=== PATIENT | female | born 1950 | race Caucasian/White ===

== ENCOUNTER 2017-02-02 19:57 | Inpatient (IN) | payer BC, MEDICARE ==
[~2017-02-02] VITALS: Ht 162.6 cm; Wt 71.0 kg
[~2017-02-02 19:57] MED LIST: ALBU8.5H5 INH; DILT180C9 PO; DOCU-131 PO; ESOM40CA PO; IPRA4AER INH; LASIX; LISI-167 PO; LORA0.5T PO; MONT10TA6 PO; POLY17PO5 PO; POTASSIUM CHLORIDE; TRAM50TA2 PO
[2017-02-02] MEDS ORDERED: ONDANSETRON 2MG/ML, 2ML ONE (20:40)
[2017-02-02] MEDS ORDERED: morphine SULFATE 10 MG/ML, 1ML ONE (20:40)
[2017-02-02] MEDS: MORPHINE SULFATE 4 MG/ML, 1ML IVPush PRN ×2 (20:44→22:43)
[2017-02-02] MEDS ORDERED: ONDANSETRON 2MG/ML, 2ML IVPush ONE (21:00)
[2017-02-02] MEDS ORDERED: SODIUM CHLORIDE 0.9% 1,000ML IVBOLUS ONE (21:00)
[2017-02-02] MEDS ORDERED: SODIUM CHLORIDE FLUSH 10ML SYR IVF ONE (21:00)
[2017-02-02] MEDS ORDERED: HYDROmorphone 1 MG/ML, 1ML IVPush PRN (22:30)
[2017-02-02] MEDS ORDERED: FLUN8.9H INH (23:58)
[2017-02-03] MEDS ORDERED: SODIUM CHLORIDE 0.9% 1,000ML IVBOLUS ONE
[2017-02-03] MEDS ORDERED: HYDROmorphone 1 MG/ML, 1ML ONE (00:03)
[2017-02-03 00:05] LABS: HEMATOCRIT 35.5 % (34.6-47.8); HEMOGLOBIN 12.1 g/dL (11.7-16.4); WHITE BLOOD COUNT 9.2 x10^3/uL (3.4-10)
[2017-02-03 00:15] LABS: BLOOD UREA NITROGEN 17 mg/dL (7-18)
[2017-02-03 00:19] LABS: ASPARTATE AMINO TRANSFERASE 24 U/L (15-37)
[2017-02-03] MEDS ORDERED: SODIUM CHLORIDE 0.9% 1,000 ML IV ONE (00:41)
[2017-02-03] MEDS ORDERED: ONDANSETRON 2MG/ML, 2ML IVPush PRN ×2 (01:00→02:00)
[2017-02-03 01:08] VITALS: BP 125/75
[2017-02-03] MEDS ORDERED: ALBUTEROL SULFATE 2.5 MG/3 ML NPPB PRN (02:00)
[2017-02-03] MEDS: HEPARIN 5,000 UNITS/ML, 1ML SQ SCH ×3 (02:47→22:02)
[2017-02-03] MEDS: SODIUM CHLORIDE 0.9% 1,000 ML IV SCH ×2 (02:47→14:50)
[2017-02-03] MEDS: morphine SULFATE 10 MG/ML, 1ML IVPush PRN ×4 (02:47→21:54)
[2017-02-03 03:59] VITALS: BP 154/73
[2017-02-03] MEDS: KETOROLAC 30 MG/1 ML IVPush PRN (07:34)
[2017-02-03] MEDS: PANTOPROZOLE 40MG TABLET PO SCH (07:39)
[2017-02-03] MEDS: MONTELUKAST 10 MG TABLET PO SCH (08:29)
[2017-02-03] MEDS: LACTULOSE 10 GM/15 ML UDC PO SCH ×2 (08:29→21:00)
[2017-02-03 08:34] VITALS: BP 128/70
[2017-02-03] MEDS: FLUNISOLIDE INH SCH (09:00)
[2017-02-03 10:25] LABS: PATH.CAST-FLAG NOT PRESENT; SPERM-FLAG NOT PRESENT; SRC-FLAG NOT PRESENT; XTAL-FLAG NOT PRESENT; YLC-FLAG NOT PRESENT
[2017-02-03] MEDS: HYDROcodone/APAP 10/325 MG TABLET PO PRN ×2 (12:34→19:48)
[2017-02-03] MEDS: TIZANIDINE 4MG TABLET PO SCH ×2 (13:09→21:55)
[2017-02-03 13:24] VITALS: BP 161/82
[2017-02-03] MEDS ORDERED: CEFTRIAXONE PMX 1GM/50ML 50 ML IV SCH (13:30)
[2017-02-03] MEDS ORDERED: CEFTRIAXONE 1,000 MG in DEXTROSE 5% 50 ML IV SCH ×2 (14:00)
[2017-02-03 20:37] VITALS: BP 175/93
[2017-02-03] MEDS ORDERED: LISINOPRIL 10 MG TABLET PO SCH (21:00)
[2017-02-03] MEDS ORDERED: DILTIAZEM 300 MG CAP.ER.24H PO SCH (21:00)
[2017-02-04 02:22] VITALS: BP 118/60
[2017-02-04] MEDS: KETOROLAC 30 MG/1 ML IVPush PRN (03:33)
[2017-02-04] MEDS: HYDROcodone/APAP 10/325 MG TABLET PO PRN ×5 (03:33→20:29)
[2017-02-04] MEDS: LORazepam 1MG TABLET PO PRN ×2 (03:33→23:58)
[2017-02-04] MEDS: SODIUM CHLORIDE 0.9% 1,000 ML IV SCH (04:21)
[2017-02-04] MEDS: PANTOPROZOLE 40MG TABLET PO SCH (07:30)
[2017-02-04] MEDS: MONTELUKAST 10 MG TABLET PO SCH (07:48)
[2017-02-04] MEDS: OMEPRAZOLE 20 MG CAPSULE.DR PO SCH (07:49)
[2017-02-04] MEDS: TIZANIDINE 2MG TABLET PO SCH ×2 (07:49→16:35)
[2017-02-04] MEDS: HEPARIN 5,000 UNITS/ML, 1ML SQ SCH ×2 (07:49→16:35)
[2017-02-04] MEDS: LACTULOSE 10 GM/15 ML UDC PO SCH ×2 (07:49→20:30)
[2017-02-04 08:00] VITALS: BP 120/62
[2017-02-04] MEDS: FLUNISOLIDE INH SCH (09:00)
[2017-02-04] MEDS ORDERED: CEFTRIAXONE 1,000 MG in SODIUM CHLORIDE 0.9% 50 ML IV SCH (10:11)
[2017-02-04 13:31] VITALS: BP 140/67
[2017-02-04] MEDS ORDERED: DOCUSATE 100 MG CAPSULE ONE (16:19)
[2017-02-04] MEDS: DOCUSATE 100 MG CAPSULE PO SCH (16:35)
[2017-02-04 20:17] VITALS: BP 156/81
[2017-02-04] MEDS: LISINOPRIL 10 MG TABLET PO SCH (20:29)
[2017-02-04] MEDS: DILTIAZEM 300 MG CAP.ER.24H PO SCH (20:30)
[2017-02-04] MEDS: morphine SULFATE 10 MG/ML, 1ML IVPush PRN (22:11)
[2017-02-05] MEDS: HYDROcodone/APAP 10/325 MG TABLET PO PRN ×5 (00:29→20:40)
[2017-02-05] MEDS: HEPARIN 5,000 UNITS/ML, 1ML SQ SCH ×3 (00:31→16:24)
[2017-02-05 02:19] VITALS: BP 136/60
[2017-02-05 07:40] VITALS: BP 136/68
[2017-02-05] MEDS: PANTOPROZOLE 40MG TABLET PO SCH (08:16)
[2017-02-05] MEDS: OMEPRAZOLE 20 MG CAPSULE.DR PO SCH (08:16)
[2017-02-05] MEDS: DOCUSATE 100 MG CAPSULE PO SCH ×2 (08:16→20:39)
[2017-02-05] MEDS: MONTELUKAST 10 MG TABLET PO SCH (08:16)
[2017-02-05] MEDS: TIZANIDINE 2MG TABLET PO SCH ×3 (08:17→16:23)
[2017-02-05] MEDS: LACTULOSE 10 GM/15 ML UDC PO SCH ×2 (08:17→20:40)
[2017-02-05] MEDS: FLUNISOLIDE INH SCH (08:17)
[2017-02-05] MEDS: ERTAPENEM 1 GM in SODIUM CHLORIDE 0.9% 50 ML IV SCH (12:53)
[2017-02-05 13:35] VITALS: BP 139/57
[2017-02-05] MEDS: morphine SULFATE 10 MG/ML, 1ML IVPush PRN (16:31)
[2017-02-05 18:58] VITALS: BP 101/42
[2017-02-05] MEDS: LISINOPRIL 10 MG TABLET PO SCH (20:39)
[2017-02-05] MEDS: DILTIAZEM 300 MG CAP.ER.24H PO SCH (20:39)
[2017-02-06] MEDS: HYDROcodone/APAP 10/325 MG TABLET PO PRN ×6 (00:25→20:52)
[2017-02-06] MEDS: LORazepam 1MG TABLET PO PRN (00:25)
[2017-02-06] MEDS: HEPARIN 5,000 UNITS/ML, 1ML SQ SCH ×4 (00:26→23:56)
[2017-02-06 01:18] VITALS: BP 104/54
[2017-02-06] MEDS: morphine SULFATE 10 MG/ML, 1ML IVPush PRN ×3 (06:46→22:06)
[2017-02-06 07:22] VITALS: BP 114/50
[2017-02-06] MEDS: OMEPRAZOLE 20 MG CAPSULE.DR PO SCH (07:30)
[2017-02-06] MEDS: PANTOPROZOLE 40MG TABLET PO SCH (07:41)
[2017-02-06] MEDS: MONTELUKAST 10 MG TABLET PO SCH (07:41)
[2017-02-06] MEDS: TIZANIDINE 2MG TABLET PO SCH ×4 (07:42→23:55)
[2017-02-06] MEDS: DOCUSATE 100 MG CAPSULE PO SCH ×2 (07:42→20:53)
[2017-02-06] MEDS: FLUNISOLIDE INH SCH (07:43)
[2017-02-06] MEDS: LACTULOSE 10 GM/15 ML UDC PO SCH ×2 (07:44→20:54)
[2017-02-06] MEDS: ERTAPENEM 1 GM in SODIUM CHLORIDE 0.9% 50 ML IV SCH (12:05)
[2017-02-06 13:24] VITALS: BP 123/55
[2017-02-06 19:16] VITALS: BP 116/48
[2017-02-06] MEDS: DILTIAZEM 300 MG CAP.ER.24H PO SCH (20:54)
[2017-02-06] MEDS: LISINOPRIL 10 MG TABLET PO SCH (20:54)
[2017-02-07] MEDS: LORazepam 1MG TABLET PO PRN (01:09)
[2017-02-07] MEDS: HYDROcodone/APAP 10/325 MG TABLET PO PRN ×6 (01:09→22:57)
[2017-02-07 01:21] VITALS: BP 146/61
[2017-02-07] MEDS: morphine SULFATE 10 MG/ML, 1ML IVPush PRN ×2 (04:50→09:03)
[2017-02-07] MEDS: OMEPRAZOLE 20 MG CAPSULE.DR PO SCH (07:30)
[2017-02-07 08:42] VITALS: BP 130/55
[2017-02-07] MEDS: MONTELUKAST 10 MG TABLET PO SCH (08:55)
[2017-02-07] MEDS: PANTOPROZOLE 40MG TABLET PO SCH (08:55)
[2017-02-07] MEDS: TIZANIDINE 2MG TABLET PO SCH ×2 (08:57→16:23)
[2017-02-07] MEDS: DOCUSATE 100 MG CAPSULE PO SCH ×2 (08:59→20:10)
[2017-02-07] MEDS: FLUNISOLIDE INH SCH (09:00)
[2017-02-07] MEDS: LACTULOSE 10 GM/15 ML UDC PO SCH ×2 (09:01→20:10)
[2017-02-07] MEDS: HEPARIN 5,000 UNITS/ML, 1ML SQ SCH ×2 (09:03→16:24)
[2017-02-07] MEDS: ERTAPENEM 1 GM in SODIUM CHLORIDE 0.9% 50 ML IV SCH (11:32)
[2017-02-07 14:52] VITALS: BP 127/57
[2017-02-07 19:00] VITALS: BP 121/48
[2017-02-07] MEDS ORDERED: ERGOCALCIFEROL 50,000 UNIT CAPSULE PO SCH (19:00)
[2017-02-07] MEDS ORDERED: MAGNESIUM HYDROXIDE 8%, 30ML UDC PO PRN (19:30)
[2017-02-07] MEDS: DILTIAZEM 300 MG CAP.ER.24H PO SCH (20:10)
[2017-02-07] MEDS: LISINOPRIL 10 MG TABLET PO SCH (20:10)
[2017-02-08] MEDS: LORazepam 1MG TABLET PO PRN (00:05)
[2017-02-08] MEDS: HEPARIN 5,000 UNITS/ML, 1ML SQ SCH ×3 (00:05→16:10)
[2017-02-08] MEDS: TIZANIDINE 2MG TABLET PO SCH ×3 (00:06→16:10)
[2017-02-08] MEDS: morphine SULFATE 10 MG/ML, 1ML IVPush PRN ×2 (01:35→18:04)
[2017-02-08 03:30] VITALS: BP 122/53
[2017-02-08] MEDS: HYDROcodone/APAP 10/325 MG TABLET PO PRN ×5 (03:58→20:59)
[2017-02-08] MEDS: OMEPRAZOLE 20 MG CAPSULE.DR PO SCH (07:30)
[2017-02-08] MEDS: PANTOPROZOLE 40MG TABLET PO SCH (07:52)
[2017-02-08] MEDS: LACTULOSE 10 GM/15 ML UDC PO SCH ×2 (07:53→20:59)
[2017-02-08] MEDS: MONTELUKAST 10 MG TABLET PO SCH (07:53)
[2017-02-08] MEDS: DOCUSATE 100 MG CAPSULE PO SCH ×2 (07:53→20:59)
[2017-02-08] MEDS: FLUNISOLIDE INH SCH (07:54)
[2017-02-08 08:32] VITALS: BP 107/47
[2017-02-08] MEDS: ERTAPENEM 1 GM in SODIUM CHLORIDE 0.9% 50 ML IV SCH ×2 (11:53→15:33)
[2017-02-08 13:14] VITALS: BP 100/51
[2017-02-08 18:59] VITALS: BP 104/54
[2017-02-08] MEDS: LISINOPRIL 10 MG TABLET PO SCH (20:58)
[2017-02-08] MEDS: DILTIAZEM 300 MG CAP.ER.24H PO SCH (21:48)
[2017-02-09] MEDS: LORazepam 1MG TABLET PO PRN (00:16)
[2017-02-09] MEDS: HEPARIN 5,000 UNITS/ML, 1ML SQ SCH ×3 (00:17→16:11)
[2017-02-09 01:14] VITALS: BP 154/68
[2017-02-09] MEDS: HYDROcodone/APAP 10/325 MG TABLET PO PRN ×6 (01:25→23:06)
[2017-02-09] MEDS: morphine SULFATE 10 MG/ML, 1ML IVPush PRN ×6 (01:56→21:23)
[2017-02-09] MEDS: OMEPRAZOLE 20 MG CAPSULE.DR PO SCH (07:30)
[2017-02-09] MEDS: MONTELUKAST 10 MG TABLET PO SCH (07:59)
[2017-02-09] MEDS: LACTULOSE 10 GM/15 ML UDC PO SCH ×2 (07:59→21:23)
[2017-02-09] MEDS: MULTIVITAMIN 1 TABLET PO SCH (07:59)
[2017-02-09] MEDS: TIZANIDINE 2MG TABLET PO SCH ×3 (07:59→16:11)
[2017-02-09] MEDS: FLUNISOLIDE INH SCH (07:59)
[2017-02-09] MEDS: DOCUSATE 100 MG CAPSULE PO SCH ×2 (07:59→21:22)
[2017-02-09] MEDS: PANTOPROZOLE 40MG TABLET PO SCH (08:00)
[2017-02-09 08:38] VITALS: BP 107/45
[2017-02-09 14:41] VITALS: BP 136/59
[2017-02-09] MEDS: ERTAPENEM 1 GM in SODIUM CHLORIDE 0.9% 50 ML IV SCH (16:11)
[2017-02-09 19:38] VITALS: BP 133/66
[2017-02-09] MEDS: LISINOPRIL 10 MG TABLET PO SCH (21:21)
[2017-02-09] MEDS: DILTIAZEM 300 MG CAP.ER.24H PO SCH (21:22)
[2017-02-10] MEDS: HEPARIN 5,000 UNITS/ML, 1ML SQ SCH ×3 (01:07→15:58)
[2017-02-10] MEDS: TIZANIDINE 2MG TABLET PO SCH ×3 (01:07→15:59)
[2017-02-10] MEDS: LORazepam 1MG TABLET PO PRN (01:07)
[2017-02-10 01:13] VITALS: BP 136/69
[2017-02-10] MEDS: morphine SULFATE 10 MG/ML, 1ML IVPush PRN ×2 (01:47→08:16)
[2017-02-10] MEDS: HYDROcodone/APAP 10/325 MG TABLET PO PRN ×5 (03:53→19:56)
[2017-02-10] MEDS: PANTOPROZOLE 40MG TABLET PO SCH (08:02)
[2017-02-10] MEDS: OMEPRAZOLE 20 MG CAPSULE.DR PO SCH (08:02)
[2017-02-10] MEDS: MULTIVITAMIN 1 TABLET PO SCH (08:02)
[2017-02-10] MEDS: MONTELUKAST 10 MG TABLET PO SCH (08:02)
[2017-02-10] MEDS: FLUNISOLIDE INH SCH (08:03)
[2017-02-10] MEDS: DOCUSATE 100 MG CAPSULE PO SCH ×2 (08:03→19:54)
[2017-02-10] MEDS: LACTULOSE 10 GM/15 ML UDC PO SCH ×2 (08:03→19:54)
[2017-02-10 08:18] VITALS: BP 152/73
[2017-02-10 13:37] VITALS: BP 129/59
[2017-02-10] MEDS: ERTAPENEM 1 GM in SODIUM CHLORIDE 0.9% 50 ML IV SCH (15:59)
[2017-02-10 19:34] VITALS: BP 102/61
[2017-02-10] MEDS: LISINOPRIL 10 MG TABLET PO SCH ×2 (19:56→19:57)
[2017-02-10] MEDS: DILTIAZEM 300 MG CAP.ER.24H PO SCH (19:56)
[2017-02-11] MEDS: HYDROcodone/APAP 10/325 MG TABLET PO PRN ×5 (00:07→15:24)
[2017-02-11] MEDS: LORazepam 1MG TABLET PO PRN (00:08)
[2017-02-11 04:05] VITALS: BP 135/66
[2017-02-11 07:40] VITALS: BP 129/62
[2017-02-11] MEDS: OMEPRAZOLE 20 MG CAPSULE.DR PO SCH (08:17)
[2017-02-11] MEDS: MULTIVITAMIN 1 TABLET PO SCH (08:17)
[2017-02-11] MEDS: PANTOPROZOLE 40MG TABLET PO SCH (08:17)
[2017-02-11] MEDS: HEPARIN 5,000 UNITS/ML, 1ML SQ SCH ×3 (08:18→15:24)
[2017-02-11] MEDS: MONTELUKAST 10 MG TABLET PO SCH (08:18)
[2017-02-11] MEDS: TIZANIDINE 2MG TABLET PO SCH ×3 (08:24→15:24)
[2017-02-11] MEDS: LACTULOSE 10 GM/15 ML UDC PO SCH (08:24)
[2017-02-11] MEDS: FLUNISOLIDE INH SCH (08:24)
[2017-02-11] MEDS: DOCUSATE 100 MG CAPSULE PO SCH (08:24)
[2017-02-11] MEDS ORDERED: HYDR-3307 PO (11:42)
[2017-02-11] MEDS ORDERED: HEPA5000 SQ (11:42)
[2017-02-11] MEDS ORDERED: TIZA2TAB PO (11:42)
[2017-02-11] MEDS ORDERED: ERGO500017 PO (11:46)
[2017-02-11] MEDS: ERTAPENEM 1 GM in SODIUM CHLORIDE 0.9% 50 ML IV SCH (14:13)
[2017-02-11 15:11] VITALS: BP 150/79
== END 2017-02-11 15:35 | DRG 552 ==
LOC: ED 22:28 → EDIP 02-03 00:41 → 4NOR 02-03 01:30
PROVIDERS: ADMIT Hospitalist; ATTEND Hospitalist
DX: S32.10XA Unspecified fracture of sacrum, initial encounter for closed fracture (principal); J44.9 Chronic obstructive pulmonary disease, unspecified; D64.9 Anemia, unspecified; N39.0 Urinary tract infection, site not specified; E55.9 Vitamin D deficiency, unspecified; F41.1 Generalized anxiety disorder; B96.20 Unspecified Escherichia coli [E. coli] as the cause of diseases classified elsewhere; K44.9 Diaphragmatic hernia without obstruction or gangrene; Z16.12 Extended spectrum beta lactamase (ESBL) resistance; W18.30XA Fall on same level, unspecified, initial encounter; K21.9 Gastro-esophageal reflux disease without esophagitis; I10 Essential (primary) hypertension; M19.90 Unspecified osteoarthritis, unspecified site; K59.00 Constipation, unspecified; Z75.1 Person awaiting admission to adequate facility elsewhere; Z87.440 Personal history of urinary (tract) infections; Z87.891 Personal history of nicotine dependence; Z87.11 Personal history of peptic ulcer disease; Y92.009 Unspecified place in unspecified non-institutional (private) residence as the place of occurrence of the external cause; Z79.899 Other long term (current) drug therapy; Z88.8 Allergy status to other drugs, medicaments and biological substances; Z79.1 Long term (current) use of non-steroidal anti-inflammatories (NSAID)
CPT/HCPCS: 36415; 71010; 72110; 72131; 72190; 72192; 80053; 81001; 82306; 82607; 84443; 85025; 87077; 87086; 87186; 87324; 96361; 96374; 96375; 96376; J0696; J1170; J1335; J1644; J1885; J2405; J2270; J7030

== ENCOUNTER 2018-09-17 22:19 | Inpatient (IN) | payer OTHER, MEDICARE ==
[~2018-09-17] VITALS: Ht 162.6 cm; Wt 78.4 kg
[~2018-09-17 22:19] MED LIST changes: +ERGO500017 PO; +FLUN8.9H INH; +HEPA50002 SQ; +HYDR-3307 PO; +TIZA2TAB PO
--- NOTE | 2018-09-17 22:28 | NUR ---
PT IN GOWN IN [facility]. ERP AT . PT EDUCATED ON ER PROCESS AND POC. PT MEDICATED WITH 100 MCG FENTANYL AND 1 MG OF VERSED EN ROUTE TO [facility] ED. PT PAIN UNRELIEVED BY THIS INTERVENTION. PT ATTACHED TO VS MACHINES AND PUBLIC ADMINISTRATION TEACHER. PT VSS. PT GIVEN CALL LIGHT; DENIES ANY OTHER NEEDS AT THIS TIME.
[2018-09-17] MEDS ORDERED: MORPHINE SULFATE 4 MG/ML, 1ML ONE ×2 (22:32→23:24)
[2018-09-17] MEDS: MORPHINE SULFATE 4 MG/ML, 1ML IVPush PRN ×2 (22:40→23:36)
--- NOTE | 2018-09-17 22:46 | NUR ---
PT HAS XRAY AT BS.
[2018-09-17] MEDS ORDERED: SODIUM CHLORIDE FLUSH 10ML SYR IVF ONE (23:00)
[2018-09-17 23:22] LABS: INTERNATIONAL NORMALIZED RATIO 0.91 (0.93-1.1); PROTHROMBIN TIME 9.6 Seconds (9.6-11.5)
[2018-09-17 23:23] LABS: ALBUMIN 3.7 g/dL (3.4-5.0); ANION GAP 10 mmol/L (5-15); CALCIUM 8.3 mg/dL (8.5-10.1); CHLORIDE 100 mmol/L (98-107); CREATININE 0.68 mg/dL (0.55-1.02)
[2018-09-17 23:28] LABS: MD YES
[2018-09-17 23:30] LABS: MEAN CORPUSCULAR HEMOGLOBIN 22.5 pg (27.0-34.8); MEAN CORPUSCULAR HGB CONC 30.7 g/dL (32.4-35.8); MEAN CORPUSCULAR VOLUME 73.4 fL (80-100); MEAN PLATELET VOLUME 7.9 fL (7.4-10.4); PLATELET COUNT 492 x10^3/uL (130-400); RED BLOOD COUNT 3.36 x10^6/uL (3.82-5.3); RED CELL DISTRIBUTION WIDTH 18.5 % (9.6-15.2)
--- NOTE | 2018-09-17 23:36 | NUR ---
PT MEDICATED PER MAY FOR PAIN. PT PROVIDED GLYCERIN SWABS FOR DRY MOUTH.
[2018-09-17 23:38] LABS: EOS% (MANUAL) 1 % (1-7); LYMPH#(MANUAL) 0.92 x10^3/uL (1-3.4); LYMPHS% (MANUAL) 9 % (22-44); MONOS% (MANUAL) 2 % (2-9); SEG#(MANUAL) 8.98 x10^3/uL (1.8-6.8); SEGS% (MANUAL) 88 % (42-75)
[2018-09-17 23:39] LABS: ANISOCYTOSIS 2+
[2018-09-17 23:40] LABS: HYPOCHROMIA 1+; MICROCYTOSIS 1+
[2018-09-17 23:41] LABS: OVALOCYTES 1+; TARGET CELLS 1+
[2018-09-17 23:42] LABS: <PLATELET ESTIMATE> INCREASED; <PLT MORPHOLOGY> NORMAL PLT MORPH
[2018-09-18] VITALS (11 sets, daily range): BP systolic 132–167; BP diastolic 69–82
--- NOTE | 2018-09-18 00:24 | NUR ---
ATTEMPTED REPORT OF PT TO LARRY IVERSON. PER ZAYRA BEY WILL CALL BACK.
[2018-09-18] MEDS ORDERED: MORPHINE SULFATE 4 MG/ML, 1ML IVPush PRN (00:30)
--- NOTE | 2018-09-18 00:59 | NUR ---
REPORT OF PT TO LARRY STEPHENSON. ALL QUESTIONS ANSWERED. PT TO RECEIVE PRBC UPON ARRIVAL TO FLOOR. SEEMA CONFIRMS AND VERBALIZES UNDERSTANDING.
[2018-09-18] MEDS ORDERED: MORPHINE SULFATE 4 MG/ML, 1ML IVPush ONE (03:30)
[2018-09-18] MEDS ORDERED: SODIUM CHLORIDE 0.9% 1,000 ML IV SCH (03:58)
[2018-09-18] MEDS ORDERED: LABETALOL 5MG/ML, 20ML IVPush PRN (04:00)
[2018-09-18] MEDS ORDERED: ACETAMINOPHEN 325 MG TABLET PO PRN (04:00)
[2018-09-18] MEDS ORDERED: POLYETHYLENE GLYCOL 17 GM PACKET PO PRN (04:00)
[2018-09-18] MEDS ORDERED: BISACODYL 10 MG SUPP PR PRN (04:00)
[2018-09-18] MEDS: LORazepam 0.5MG TABLET PO PRN ×2 (04:29→22:39)
[2018-09-18] MEDS ORDERED: ONDANSETRON 2MG/ML, 2ML IVPush ONE (04:30)
[2018-09-18] MEDS ORDERED: ALBUTEROL SULFATE 2.5 MG/3 ML NPPB PRN (05:30)
[2018-09-18 07:00] LABS: MEAN CORPUSCULAR HEMOGLOBIN 22.1 pg (27.0-34.8); MEAN CORPUSCULAR HGB CONC 30.4 g/dL (32.4-35.8); MEAN CORPUSCULAR VOLUME 72.8 fL (80-100); MEAN PLATELET VOLUME 7.6 fL (7.4-10.4); PLATELET COUNT 449 x10^3/uL (130-400); RED BLOOD COUNT 3.18 x10^6/uL (3.82-5.3); RED CELL DISTRIBUTION WIDTH 18.7 % (9.6-15.2)
[2018-09-18 07:44] LABS: BASOPHILS # (AUTO) 0.07 x10^3/uL (0-0.1); BASOPHILS % (AUTO) 1 % (0-1); EOSINOPHILS # (AUTO) 0.18 x10^3/uL (0-0.4); EOSINOPHILS % (AUTO) 2 % (1-7); LYMPHOCYTES # (AUTO) 1.22 x10^3/uL (1-3.4); LYMPHOCYTES % (AUTO) 15 % (22-44); MD NO; MONOCYTES # (AUTO) 0.83 x10^3/uL (0.2-0.8); MONOCYTES % (AUTO) 10 % (2-9); NEUTROPHILS # (AUTO) 5.95 x10^3/uL (1.8-6.8); NEUTROPHILS % (AUTO) 72 % (42-75)
[2018-09-18] MEDS ORDERED: ATOR10TA9 PO (08:58)
[2018-09-18] MEDS ORDERED: LISINOPRIL 10 MG TABLET PO SCH (09:00)
[2018-09-18] MEDS: SENNA/DOCUSATE TABLET PO SCH (09:00)
[2018-09-18] MEDS ORDERED: MORPHINE SULFATE 4 MG/ML, 1ML ONE ×2 (09:00→13:45)
[2018-09-18] MEDS: MONTELUKAST 10 MG TABLET PO SCH (09:02)
[2018-09-18] MEDS: morphine SULFATE 10 MG/ML, 1ML IVPush PRN ×3 (09:02→21:51)
[2018-09-18] MEDS: PANTOPROZOLE 40MG TABLET PO SCH (09:03)
[2018-09-18] MEDS ORDERED: FUROSEMIDE 20 MG/2 ML IV ONE (10:30)
[2018-09-18] MEDS: IPRATROPIUM 0.5 MG/2.5 ML INHA NPPB SCH ×3 (10:30→21:00)
[2018-09-18] MEDS: HEPARIN 5,000 UNITS/ML, 1ML SQ SCH ×2 (13:02→21:51)
[2018-09-18] MEDS: LISINOPRIL 10 MG TABLET PO SCH (22:39)
[2018-09-19 01:51] VITALS: BP 158/80
[2018-09-19] MEDS: IPRATROPIUM 0.5 MG/2.5 ML INHA NPPB SCH ×4 (03:00→20:43)
[2018-09-19 05:29] LABS: BASOPHILS # (AUTO) 0.08 x10^3/uL (0-0.1); BASOPHILS % (AUTO) 1 % (0-1); EOSINOPHILS # (AUTO) 0.61 x10^3/uL (0-0.4); EOSINOPHILS % (AUTO) 9 % (1-7); LYMPHOCYTES % (AUTO) 23 % (22-44); MD NO; MEAN CORPUSCULAR HEMOGLOBIN 24.6 pg (27.0-34.8); MEAN CORPUSCULAR HGB CONC 31.8 g/dL (32.4-35.8); MEAN CORPUSCULAR VOLUME 77.4 fL (80-100); MONOCYTES # (AUTO) 0.91 x10^3/uL (0.2-0.8); MONOCYTES % (AUTO) 14 % (2-9); NEUTROPHILS # (AUTO) 3.42 x10^3/uL (1.8-6.8); NEUTROPHILS % (AUTO) 53 % (42-75); PLATELET COUNT 381 x10^3/uL (130-400); RED BLOOD COUNT 4.07 x10^6/uL (3.82-5.3); RED CELL DISTRIBUTION WIDTH 19.4 % (9.6-15.2)
[2018-09-19 05:30] LABS: ANION GAP 5 mmol/L (5-15); CALCIUM 8.7 mg/dL (8.5-10.1); CHLORIDE 100 mmol/L (98-107); CREATININE 0.51 mg/dL (0.55-1.02)
[2018-09-19] MEDS: MONTELUKAST 10 MG TABLET PO SCH ×2 (07:07→07:52)
[2018-09-19] MEDS: HEPARIN 5,000 UNITS/ML, 1ML SQ SCH ×2 (07:26→23:58)
[2018-09-19 07:30] VITALS: BP 142/73
[2018-09-19] MEDS: PANTOPROZOLE 40MG TABLET PO SCH (07:52)
[2018-09-19] MEDS: morphine SULFATE 10 MG/ML, 1ML IVPush PRN ×4 (07:52→20:54)
[2018-09-19] MEDS: KETOROLAC 30 MG/1 ML IV PRN ×2 (08:00→15:52)
[2018-09-19] MEDS: SENNA/DOCUSATE TABLET PO SCH (08:39)
[2018-09-19] MEDS ORDERED: ALBUTEROL SULFATE 2.5 MG/3 ML HHN PRN (09:30)
[2018-09-19] MEDS: TIZANIDINE 4MG TABLET PO SCH ×2 (09:30→15:47)
[2018-09-19] MEDS: DILTIAZEM 300 MG CAP.ER.24H PO SCH (10:54)
[2018-09-19 12:10] VITALS: BP 119/67
[2018-09-19] MEDS ORDERED: BUPIVACAINE/EPI 0.5% 1:200K ONE (15:40)
[2018-09-19] MEDS ORDERED: MIDAZOLAM 1 MG/ML, 2ML ONE (16:46)
[2018-09-19] MEDS ORDERED: FENTANYL PF 250 MCG/5ML ONE (16:46)
[2018-09-19] MEDS ORDERED: CEFAZOLIN 1,000 MG ONE (17:11)
[2018-09-19] MEDS ORDERED: ROCURONIUM 10 MG/ML,10ML ONE (17:11)
[2018-09-19] MEDS ORDERED: SUGAMMADEX 200 MG/2 ML IVPush ONE (17:11)
[2018-09-19] MEDS ORDERED: ONDANSETRON 2MG/ML, 2ML ONE (17:11)
[2018-09-19] MEDS ORDERED: DEXAMETHASONE 4 MG/ML, 1ML ONE (17:11)
[2018-09-19] MEDS ORDERED: PROMETHAZINE 25 MG/ML, 1ML IV PRN (17:30)
[2018-09-19] MEDS ORDERED: DIPHENHYDRAMINE 50 MG/ML, 1ML IVPush PRN (17:30)
[2018-09-19] MEDS ORDERED: hydrALAzine 20 MG/ML, 1ML IV PRN (17:30)
[2018-09-19] MEDS ORDERED: ALBUTEROL/IPRATROPIUM 2.5MG/0.5MG, 3 ML NPPB PRN (17:30)
[2018-09-19] MEDS ORDERED: HYDROcodone/APAP 7.5-325MG/15ML UDC PO PRN (17:30)
[2018-09-19] MEDS ORDERED: MEPERIDINE/PF 25MG/0.5ML IVPush PRN (17:30)
[2018-09-19] MEDS ORDERED: FENTANYL PF 100 MCG/2ML ONE ×2 (17:57→18:22)
[2018-09-19] MEDS ORDERED: HYDROmorphone 2 MG/ML, 1ML ONE (17:57)
[2018-09-19] MEDS: FENTANYL PF 100 MCG/2ML IV PRN ×3 (18:00→18:28)
[2018-09-19] MEDS: HYDROmorphone 2 MG/ML, 1ML IVPush PRN ×4 (18:00→18:28)
[2018-09-19] MEDS ORDERED: LORazepam 2 MG/ML, 1ML ONE (18:01)
[2018-09-19] MEDS: LORazepam 2 MG/ML, 1ML IVPush PRN ×2 (18:07→18:17)
[2018-09-19] MEDS: BUDESONIDE 0.5 MG/2 ML INHA HHN SCH (20:43)
[2018-09-19] MEDS: LISINOPRIL 10 MG TABLET PO SCH (20:54)
[2018-09-20] VITALS (7 sets, daily range): BP systolic 88–128; BP diastolic 46–74
[2018-09-20] MEDS ORDERED: SODIUM CHLORIDE 0.9%, 500ML IVBOLUS ONE (00:30)
[2018-09-20] MEDS: DILTIAZEM 300 MG CAP.ER.24H PO SCH (00:41)
[2018-09-20] MEDS: TIZANIDINE 4MG TABLET PO SCH ×3 (00:57→17:25)
[2018-09-20] MEDS: CEFAZOLIN 2,000 MG in SODIUM CHLORIDE 0.9% 50 ML IV SCH ×3 (01:23→20:24)
[2018-09-20] MEDS: IPRATROPIUM 0.5 MG/2.5 ML INHA NPPB SCH ×4 (02:40→20:29)
[2018-09-20] MEDS: BUDESONIDE 0.5 MG/2 ML INHA HHN SCH ×2 (06:22→20:29)
[2018-09-20 07:39] LABS: BASOPHILS # (AUTO) 0.01 x10^3/uL (0-0.1); BASOPHILS % (AUTO) 0 % (0-1); EOSINOPHILS % (AUTO) 0 % (1-7); LYMPHOCYTES # (AUTO) 0.43 x10^3/uL (1-3.4); LYMPHOCYTES % (AUTO) 7 % (22-44); MD NO; MEAN CORPUSCULAR HEMOGLOBIN 24.3 pg (27.0-34.8); MEAN CORPUSCULAR HGB CONC 31.3 g/dL (32.4-35.8); MEAN CORPUSCULAR VOLUME 77.6 fL (80-100); MONOCYTES # (AUTO) 0.33 x10^3/uL (0.2-0.8); MONOCYTES % (AUTO) 6 % (2-9); NEUTROPHILS # (AUTO) 5.17 x10^3/uL (1.8-6.8); NEUTROPHILS % (AUTO) 87 % (42-75); PLATELET COUNT 370 x10^3/uL (130-400); RED BLOOD COUNT 3.77 x10^6/uL (3.82-5.3); RED CELL DISTRIBUTION WIDTH 20.4 % (9.6-15.2)
[2018-09-20 07:49] LABS: ANION GAP 8 mmol/L (5-15); CALCIUM 8.9 mg/dL (8.5-10.1); CHLORIDE 100 mmol/L (98-107); CREATININE 0.84 mg/dL (0.55-1.02)
[2018-09-20] MEDS: PANTOPROZOLE 40MG TABLET PO SCH (09:39)
[2018-09-20] MEDS: MONTELUKAST 10 MG TABLET PO SCH (09:39)
[2018-09-20] MEDS: SENNA/DOCUSATE TABLET PO SCH (09:40)
[2018-09-20 11:15] LABS: THYROID STIMULATING HORMONE 0.759 mIU/L (0.358-3.740)
[2018-09-20] MEDS: HEPARIN 5,000 UNITS/ML, 1ML SQ SCH (11:57)
[2018-09-20] MEDS: morphine SULFATE 10 MG/ML, 1ML IVPush PRN ×2 (11:57→20:25)
[2018-09-20] MEDS: LISINOPRIL 10 MG TABLET PO SCH (20:25)
[2018-09-20] MEDS: LORazepam 0.5MG TABLET PO PRN (23:27)
[2018-09-21 00:33] VITALS: BP 147/69
[2018-09-21] MEDS: HEPARIN 5,000 UNITS/ML, 1ML SQ SCH ×2 (00:38→12:24)
[2018-09-21] MEDS: TIZANIDINE 4MG TABLET PO SCH ×3 (00:38→16:21)
[2018-09-21] MEDS: IPRATROPIUM 0.5 MG/2.5 ML INHA NPPB SCH ×3 (02:59→15:16)
[2018-09-21 06:42] LABS: BASOPHILS % (AUTO) 0 % (0-1); EOSINOPHILS # (AUTO) 0.04 x10^3/uL (0-0.4); EOSINOPHILS % (AUTO) 0 % (1-7); LYMPHOCYTES # (AUTO) 1.22 x10^3/uL (1-3.4); LYMPHOCYTES % (AUTO) 14 % (22-44); MD NO; MEAN CORPUSCULAR HEMOGLOBIN 24.5 pg (27.0-34.8); MEAN CORPUSCULAR HGB CONC 31.2 g/dL (32.4-35.8); MEAN CORPUSCULAR VOLUME 78.5 fL (80-100); MEAN PLATELET VOLUME 7.8 fL (7.4-10.4); MONOCYTES # (AUTO) 1.14 x10^3/uL (0.2-0.8); MONOCYTES % (AUTO) 13 % (2-9); NEUTROPHILS # (AUTO) 6.66 x10^3/uL (1.8-6.8); NEUTROPHILS % (AUTO) 74 % (42-75); PLATELET COUNT 359 x10^3/uL (130-400); RED BLOOD COUNT 3.57 x10^6/uL (3.82-5.3); RED CELL DISTRIBUTION WIDTH 20.7 % (9.6-15.2)
[2018-09-21 06:52] LABS: ANION GAP 7 mmol/L (5-15); CALCIUM 8.7 mg/dL (8.5-10.1); CHLORIDE 102 mmol/L (98-107); CREATININE 0.68 mg/dL (0.55-1.02)
[2018-09-21 07:38] VITALS: BP 151/77
[2018-09-21] MEDS: BUDESONIDE 0.5 MG/2 ML INHA HHN SCH ×2 (08:36→21:00)
[2018-09-21] MEDS ORDERED: MORPHINE SULFATE 4 MG/ML, 1ML ONE (09:47)
[2018-09-21] MEDS: KETOROLAC 30 MG/1 ML IV PRN ×2 (09:51→16:26)
[2018-09-21] MEDS: morphine SULFATE 10 MG/ML, 1ML IVPush PRN (09:51)
[2018-09-21] MEDS: PANTOPROZOLE 40MG TABLET PO SCH (09:55)
[2018-09-21] MEDS: SENNA/DOCUSATE TABLET PO SCH (09:55)
[2018-09-21] MEDS: MONTELUKAST 10 MG TABLET PO SCH (09:55)
[2018-09-21] MEDS: LISINOPRIL 10 MG TABLET PO SCH ×2 (09:55→21:05)
[2018-09-21] MEDS: LORazepam 0.5MG TABLET PO PRN ×2 (12:24→18:29)
[2018-09-21 13:30] VITALS: BP 150/79
[2018-09-21] MEDS ORDERED: ALBUTEROL/IPRATROPIUM 2.5MG/0.5MG, 3 ML ONE (15:14)
[2018-09-21] MEDS: ALBUTEROL/IPRATROPIUM 2.5MG/0.5MG, 3 ML NPPB SCH ×2 (15:19→21:00)
[2018-09-21 19:49] VITALS: BP 155/72
[2018-09-22] MEDS: HEPARIN 5,000 UNITS/ML, 1ML SQ SCH ×2 (00:55→12:45)
[2018-09-22] MEDS: TIZANIDINE 4MG TABLET PO SCH ×3 (00:55→17:22)
[2018-09-22 00:57] VITALS: BP 158/77
[2018-09-22] MEDS: ALBUTEROL/IPRATROPIUM 2.5MG/0.5MG, 3 ML NPPB SCH ×4 (02:59→20:06)
[2018-09-22 06:35] LABS: ANION GAP 9 mmol/L (5-15); CALCIUM 8.8 mg/dL (8.5-10.1); CHLORIDE 105 mmol/L (98-107); CREATININE 0.53 mg/dL (0.55-1.02); MEAN CORPUSCULAR HEMOGLOBIN 24.6 pg (27.0-34.8); MEAN CORPUSCULAR HGB CONC 31.5 g/dL (32.4-35.8); MEAN CORPUSCULAR VOLUME 78.1 fL (80-100); PLATELET COUNT 344 x10^3/uL (130-400); RED BLOOD COUNT 3.63 x10^6/uL (3.82-5.3); RED CELL DISTRIBUTION WIDTH 21.2 % (9.6-15.2)
[2018-09-22 06:54] LABS: BASOPHILS # (AUTO) 0.07 x10^3/uL (0-0.1); BASOPHILS % (AUTO) 1 % (0-1); EOSINOPHILS # (AUTO) 0.28 x10^3/uL (0-0.4); EOSINOPHILS % (AUTO) 4 % (1-7); LYMPHOCYTES # (AUTO) 1.67 x10^3/uL (1-3.4); LYMPHOCYTES % (AUTO) 21 % (22-44); MD SCAN; MONOCYTES # (AUTO) 0.93 x10^3/uL (0.2-0.8); MONOCYTES % (AUTO) 12 % (2-9); NEUTROPHILS # (AUTO) 5.03 x10^3/uL (1.8-6.8); NEUTROPHILS % (AUTO) 63 % (42-75)
[2018-09-22 06:55] VITALS: BP 163/77
[2018-09-22] MEDS: BUDESONIDE 0.5 MG/2 ML INHA HHN SCH ×2 (07:10→20:06)
[2018-09-22] MEDS: LISINOPRIL 20 MG TABLET PO SCH ×2 (08:49→19:55)
[2018-09-22] MEDS: SENNA/DOCUSATE TABLET PO SCH (08:49)
[2018-09-22] MEDS: MONTELUKAST 10 MG TABLET PO SCH (08:49)
[2018-09-22] MEDS: PANTOPROZOLE 40MG TABLET PO SCH (08:49)
[2018-09-22] MEDS ORDERED: AMLODIPINE 2.5 MG TABLET PO SCH (09:00)
[2018-09-22 14:17] VITALS: BP 147/89
[2018-09-22 18:48] VITALS: BP 155/75
[2018-09-23] MEDS: HEPARIN 5,000 UNITS/ML, 1ML SQ SCH ×2 (00:13→13:57)
[2018-09-23 01:05] VITALS: BP 146/80
[2018-09-23] MEDS: TIZANIDINE 4MG TABLET PO SCH ×4 (01:30→21:29)
[2018-09-23] MEDS: ALBUTEROL/IPRATROPIUM 2.5MG/0.5MG, 3 ML NPPB SCH ×4 (02:14→20:11)
[2018-09-23 06:18] LABS: ANION GAP 5 mmol/L (5-15); CHLORIDE 104 mmol/L (98-107); CREATININE 0.52 mg/dL (0.55-1.02)
[2018-09-23 06:42] LABS: MEAN CORPUSCULAR HEMOGLOBIN 24.6 pg (27.0-34.8); MEAN CORPUSCULAR HGB CONC 31.3 g/dL (32.4-35.8); MEAN CORPUSCULAR VOLUME 78.6 fL (80-100); MEAN PLATELET VOLUME 8.3 fL (7.4-10.4); PLATELET COUNT 365 x10^3/uL (130-400); RED BLOOD COUNT 4.02 x10^6/uL (3.82-5.3); RED CELL DISTRIBUTION WIDTH 22.6 % (9.6-15.2)
[2018-09-23] MEDS: BUDESONIDE 0.5 MG/2 ML INHA HHN SCH ×2 (06:45→20:11)
[2018-09-23 07:12] VITALS: BP 147/81
[2018-09-23 07:39] LABS: BASOPHILS # (AUTO) 0.05 x10^3/uL (0-0.1); BASOPHILS % (AUTO) 1 % (0-1); EOSINOPHILS # (AUTO) 0.68 x10^3/uL (0-0.4); EOSINOPHILS % (AUTO) 9 % (1-7); LYMPHOCYTES # (AUTO) 1.63 x10^3/uL (1-3.4); LYMPHOCYTES % (AUTO) 22 % (22-44); MD MORPH REVIEW ONLY; MONOCYTES # (AUTO) 0.97 x10^3/uL (0.2-0.8); MONOCYTES % (AUTO) 13 % (2-9); NEUTROPHILS # (AUTO) 4.12 x10^3/uL (1.8-6.8); NEUTROPHILS % (AUTO) 55 % (42-75)
[2018-09-23 07:40] LABS: ANISOCYTOSIS 2+; HYPOCHROMIA 1+; MICROCYTOSIS 1+
[2018-09-23 07:41] LABS: <PLATELET ESTIMATE> ADEQUATE; <PLT MORPHOLOGY> NORMAL PLT MORPH; POLYCHROMASIA 1+
[2018-09-23] MEDS: PANTOPROZOLE 40MG TABLET PO SCH (08:08)
[2018-09-23] MEDS: SENNA/DOCUSATE TABLET PO SCH (08:08)
[2018-09-23] MEDS: LISINOPRIL 20 MG TABLET PO SCH (08:08)
[2018-09-23] MEDS: MONTELUKAST 10 MG TABLET PO SCH (08:09)
[2018-09-23 12:18] VITALS: BP 159/72
[2018-09-23] MEDS ORDERED: BISACODYL 10 MG SUPP PR PRN (13:00)
[2018-09-23 15:05] LABS: OCCULT BLOOD POSITIVE (NEGATIVE)
[2018-09-23 16:07] LABS: MEAN CORPUSCULAR HEMOGLOBIN 25.4 pg (27.0-34.8); MEAN CORPUSCULAR HGB CONC 31.9 g/dL (32.4-35.8); MEAN CORPUSCULAR VOLUME 79.7 fL (80-100); MEAN PLATELET VOLUME 8.2 fL (7.4-10.4); PLATELET COUNT 360 x10^3/uL (130-400); RED BLOOD COUNT 3.96 x10^6/uL (3.82-5.3); RED CELL DISTRIBUTION WIDTH 22.1 % (9.6-15.2)
[2018-09-23 16:08] LABS: MD YES
[2018-09-23 16:25] LABS: BASOS#(MANUAL) 0.07 x10^3/uL (0-0.1); BASOS% (MANUAL) 1 % (0-1); EOS#(MANUAL) 0.22 x10^3/uL (0.0-0.4); EOS% (MANUAL) 3 % (1-7); LYMPH#(MANUAL) 1.04 x10^3/uL (1-3.4); LYMPHS% (MANUAL) 14 % (22-44); MONOS#(MANUAL) 1.04 x10^3/uL (0.3-2.7); MONOS% (MANUAL) 14 % (2-9); REACTIVE LYMPHS # (MANUAL) 0.07 x10^3/uL (0-0); REACTIVE LYMPHS % (MANUAL) 1 % (0-0); SEG#(MANUAL) 4.96 x10^3/uL (1.8-6.8); SEGS% (MANUAL) 67 % (42-75)
[2018-09-23 16:26] LABS: <PLATELET ESTIMATE> ADEQUATE; ANISOCYTOSIS 1+; HYPOCHROMIA 1+; MICROCYTOSIS 1+
[2018-09-23 16:27] LABS: LARGE PLATELETS 1+
[2018-09-23 19:15] VITALS: BP 156/87
[2018-09-23] MEDS: DIPHENHYDRAMINE/ZINC CRM 2%, 30GM TP PRN (19:50)
[2018-09-23] MEDS ORDERED: AMLODIPINE 2.5 MG TABLET PO SCH (21:00)
[2018-09-24] MEDS: HEPARIN 5,000 UNITS/ML, 1ML SQ SCH ×2 (01:35→14:01)
[2018-09-24 01:40] VITALS: BP 156/91
[2018-09-24] MEDS: ALBUTEROL/IPRATROPIUM 2.5MG/0.5MG, 3 ML NPPB SCH ×2 (02:36→09:10)
[2018-09-24] MEDS: DIPHENHYDRAMINE/ZINC CRM 2%, 30GM TP PRN (05:09)
[2018-09-24 08:04] VITALS: BP 158/79
[2018-09-24] MEDS: MONTELUKAST 10 MG TABLET PO SCH (09:05)
[2018-09-24] MEDS: SENNA/DOCUSATE TABLET PO SCH (09:05)
[2018-09-24] MEDS: PANTOPROZOLE 40MG TABLET PO SCH (09:05)
[2018-09-24] MEDS: LISINOPRIL 20 MG TABLET PO SCH (09:05)
[2018-09-24] MEDS: TIZANIDINE 4MG TABLET PO SCH (09:06)
[2018-09-24] MEDS: BUDESONIDE 0.5 MG/2 ML INHA HHN SCH (09:10)
[2018-09-24] MEDS ORDERED: AMLO-150 PO (10:38)
[2018-09-24] MEDS ORDERED: LISI-170 PO (10:38)
[2018-09-24] MEDS ORDERED: TRAM50TA2 PO (15:17)
[2018-09-24] MEDS ORDERED: AMLODIPINE 5 MG TABLET PO SCH (21:00)
== END 2018-09-24 15:47 | DRG 493 ==
LOC: ED 22:42 → EDIP 09-18 00:17 → 4EST 09-18 01:15 → 5SO 09-20 01:16
PROVIDERS: ADMIT Family Medicine; ATTEND Family Medicine
PROC: 30233N1 Transfusion of Nonautologous Red Blood Cells into Peripheral Vein, Percutaneous Approach (ICD-10-PCS; 2018-09-18)
PROC: 0QSJXZZ Reposition Right Fibula, External Approach (ICD-10-PCS; 2018-09-18)
PROC: 0QSGXZZ Reposition Right Tibia, External Approach (ICD-10-PCS; 2018-09-18)
PROC: 0QSG04Z Reposition Right Tibia with Internal Fixation Device, Open Approach (ICD-10-PCS; principal; 2018-09-19 17:30)
DX: S82.451A Displaced comminuted fracture of shaft of right fibula, initial encounter for closed fracture (principal); E87.1 Hypo-osmolality and hyponatremia; D62 Acute posthemorrhagic anemia; G37.3 Acute transverse myelitis in demyelinating disease of central nervous system; D50.9 Iron deficiency anemia, unspecified; E66.3 Overweight; F17.210 Nicotine dependence, cigarettes, uncomplicated; G89.29 Other chronic pain; S82.391A Other fracture of lower end of right tibia, initial encounter for closed fracture; I10 Essential (primary) hypertension; I49.1 Atrial premature depolarization; J44.9 Chronic obstructive pulmonary disease, unspecified; K21.9 Gastro-esophageal reflux disease without esophagitis; F41.9 Anxiety disorder, unspecified; K59.00 Constipation, unspecified; T46.1X5A Adverse effect of calcium-channel blockers, initial encounter; M17.11 Unilateral primary osteoarthritis, right knee; W06.XXXA Fall from bed, initial encounter; Z68.29 Body mass index [BMI] 29.0-29.9, adult; Z79.899 Other long term (current) drug therapy; Z80.0 Family history of malignant neoplasm of digestive organs; Z87.11 Personal history of peptic ulcer disease; Z99.81 Dependence on supplemental oxygen; Z88.5 Allergy status to narcotic agent; Z88.8 Allergy status to other drugs, medicaments and biological substances; Z72.89 Other problems related to lifestyle; Y93.89 Activity, other specified; Y92.092 Bedroom in other non-institutional residence as the place of occurrence of the external cause; Y99.8 Other external cause status; Z79.51 Long term (current) use of inhaled steroids
CPT/HCPCS: 27825; 36415; 73590; 73610; 76000; 99285; J7620; J7626; J7644; 80048; 82040; 82272; 82330; 83735; 84100; 84443; 85025; 85610; 85730; 86850; 86900; 86923; 93005; 93306; 94640; 96374; 96376; C1713; G0378; J0690; J1100; J1170; J1644; J1885; J2250; J2405; J3010; J1940; J2060; J2270; J7030; J7040; P9016

== ENCOUNTER → 2019-04-10 | Outpatient (CLI) | payer OTHER, MEDICARE ==
[~2019-04-10] MED LIST changes: +AMLO-150 PO; +ATOR10TA9 PO; -HYDR-3307 PO; +HYDR-36 PO; +LISI-170 PO; -TIZA2TAB PO; +TIZA2TAB2 PO
== END | disposition home or self-care (01) ==
LOC: CFH 10:16
PROVIDERS: ATTEND Physician Assistant Surgical
DX: S82.391D Other fracture of lower end of right tibia, subsequent encounter for closed fracture with routine healing (principal); M19.071 Primary osteoarthritis, right ankle and foot; X58.XXXD Exposure to other specified factors, subsequent encounter

== ENCOUNTER 2019-05-01 10:24 | Day surgery (SDC) | payer OTHER, MEDICARE ==
[~2019-05-01] VITALS: Ht 162.6 cm; Wt 66.5 kg
[~2019-05-01 10:24] MED LIST changes: +DILT180C32 PO; -DILT180C9 PO
[2019-05-01] MEDS ORDERED: ROPIvacaine/PF 0.2%, 20 ML ONE ×2 (10:48)
[2019-05-01] MEDS ORDERED: ONDANSETRON 2MG/ML, 2ML ONE ×2 (10:48→13:43)
[2019-05-01] MEDS ORDERED: DEXAMETHASONE 4 MG/ML, 1ML ONE (10:48)
[2019-05-01] MEDS ORDERED: FENTANYL PF 250 MCG/5ML ONE ×2 (10:48)
[2019-05-01] MEDS ORDERED: PROPOFOL 10 MG/ML, 20ML ONE (10:48)
[2019-05-01] MEDS ORDERED: CEFAZOLIN 1,000 MG ONE (10:48)
[2019-05-01] MEDS ORDERED: ACETAMINOPHEN 500 MG TABLET PO STA (10:55)
[2019-05-01] MEDS ORDERED: GABAPENTIN 300 MG CAPSULE PO STA (10:55)
[2019-05-01] MEDS ORDERED: LACTATED RINGERS 1,000 ML IV SCH (10:55)
[2019-05-01] MEDS ORDERED: ACET-1600 PO (11:17)
[2019-05-01] MEDS ORDERED: LISI-170 PO (11:17)
[2019-05-01] MEDS ORDERED: NAPR1TAB25 PO (11:17)
[2019-05-01 11:18] VITALS: BP 127/77
[2019-05-01] MEDS ORDERED: PLEASE ENTER HEIGHT AND WEIGHT MC SCH (11:30)
[2019-05-01] MEDS ORDERED: EPINEPHRINE 1 MG/ML, 1ML ONE (11:45)
[2019-05-01] MEDS ORDERED: BUPIVACAINE/PF 0.5% ONE (11:45)
[2019-05-01] MEDS ORDERED: BUPIVACAINE/PF-EPI 0.25% 1:200K ONE (11:54)
[2019-05-01] MEDS ORDERED: LABETALOL 5MG/ML, 20ML IV PRN (12:00)
[2019-05-01] MEDS ORDERED: PROMETHAZINE 25 MG/ML, 1ML IV PRN (12:00)
[2019-05-01] MEDS ORDERED: MORPHINE SULFATE 4 MG/ML, 1ML IVPush PRN (12:00)
[2019-05-01] MEDS ORDERED: HYDROmorphone 2 MG/ML, 1ML IVPush PRN (12:00)
[2019-05-01] MEDS ORDERED: HALOPERIDOL 5 MG/ML IV PRN (12:00)
[2019-05-01] MEDS ORDERED: hydrALAzine 20 MG/ML, 1ML IV PRN (12:00)
[2019-05-01 12:12] LABS: ALANINE AMINOTRANSFERASE 21 U/L (12-78); ANION GAP 14 mmol/L (5-15); CHLORIDE 97 mmol/L (98-107); CREATININE 0.61 mg/dL (0.55-1.02)
[2019-05-01 12:14] LABS: ALKALINE PHOSPHATASE 100 U/L (45-117); BILIRUBIN,TOTAL 0.4 mg/dL (0.2-1.0); TOTAL PROTEIN 7.8 g/dL (6.4-8.2)
[2019-05-01] MEDS ORDERED: OXYcodone 5 MG/5 ML ORAL.SOL UDC ONE (13:20)
[2019-05-01] MEDS ORDERED: FENTANYL PF 100 MCG/2ML ONE (13:23)
[2019-05-01] MEDS ORDERED: HYDROcodone/APAP 7.5-325MG/15ML UDC ONE ×3 (13:23→14:05)
[2019-05-01] MEDS: FENTANYL PF 100 MCG/2ML IV PRN ×4 (13:25→13:40)
[2019-05-01] MEDS: HYDROcodone/APAP 7.5-325MG/15ML UDC PO PRN ×2 (13:26→14:05)
[2019-05-01] MEDS ORDERED: PROMETHAZINE 25 MG/ML, 1ML ONE (13:46)
== END 2019-05-01 15:45 | disposition home or self-care (01) ==
LOC: OUT 10:24
PROVIDERS: ATTEND Orthopaedic Surgery
DX: T85.79XA Infection and inflammatory reaction due to other internal prosthetic devices, implants and grafts, initial encounter (principal); J44.9 Chronic obstructive pulmonary disease, unspecified; I10 Essential (primary) hypertension; E78.5 Hyperlipidemia, unspecified; Z88.5 Allergy status to narcotic agent; Z88.8 Allergy status to other drugs, medicaments and biological substances; Y83.8 Other surgical procedures as the cause of abnormal reaction of the patient, or of later complication, without mention of misadventure at the time of the procedure; Y92.89 Other specified places as the place of occurrence of the external cause
CPT/HCPCS: 20680; 36415; 80053; 87070; 87075; 87077; 87147; 87186; 87205; J0171; J0690; J1100; J2405; J2550; J2704; J2795; J3010; J7120

== ENCOUNTER 2019-05-01 18:07 | Emergency (ER) | payer OTHER, MEDICARE ==
[~2019-05-01] VITALS: Ht 162.6 cm; Wt 70.0 kg
[~2019-05-01 18:07] MED LIST changes: +ACET-1600 PO; -DILT180C32 PO; +DILT180C9 PO; +NAPR1TAB25 PO
[2019-05-01 18:14] VITALS: BP 145/71
--- NOTE | 2019-05-01 18:19 | NUR ---
GABO MCKEON FROM HOME. PT HAD PLATE PLACED IN RIGHT ANKLE AFTER FRATURE, 09/17. PLATE REMOVED TODAY. AFTER PT ARRIVED HOME SHE NOTICED BLOOD SOAKING THROUGH THE SURGICAL WRAP. SURGICAL WRAP STILL IN PLACE. PT DENIES PAIN. PT CONNECTED TO MONITORING. CALL LIGHT IN REACH. AWAITING ORDERS AT THIS TIME.
--- NOTE | 2019-05-01 18:48 | NUR ---
REPORT FROM LARRY CHATTERJEE
[2019-05-01] MEDS ORDERED: HYDROcodone/APAP 5/325 TABLET ONE (19:30)
[2019-05-01] MEDS ORDERED: HYDROcodone/APAP 5/325 TABLET PO ONE (19:30)
== END 2019-05-01 19:49 | disposition home or self-care (01) ==
LOC: ED 19:43
DX: T81.89XA Other complications of procedures, not elsewhere classified, initial encounter (principal); J44.9 Chronic obstructive pulmonary disease, unspecified; K21.9 Gastro-esophageal reflux disease without esophagitis; I10 Essential (primary) hypertension; Z87.891 Personal history of nicotine dependence
CPT/HCPCS: 12004; 99283

== ENCOUNTER 2019-05-03 12:37 | Emergency (ER) | payer OTHER, MEDICARE ==
[~2019-05-03] VITALS: Ht 162.6 cm; Wt 70.0 kg
[2019-05-03 12:56] VITALS: BP 139/76
--- NOTE | 2019-05-03 13:24 | NUR ---
THIS IS A 69 YO FEMALE WHO PRESENTS TO THE ER CONCERNED ABOUT DICHARGE FROM RECENT SURGICAL SITE. PT HAS HAD RECENT SURGERY 05/01. SURGICAL SITE APPEARS TO BE HEALING WELL. MILD SWELLING NOTED WITH SEROSANGUINOUS WITH MINIMAL DISCHARGE. CALL LIGHT WITHIN REACH. WILL CONT TO MONITOR PT.
== END 2019-05-03 13:56 | disposition home or self-care (01) ==
LOC: ED 13:05
DX: Z48.01 Encounter for change or removal of surgical wound dressing (principal); I10 Essential (primary) hypertension; J44.9 Chronic obstructive pulmonary disease, unspecified; K21.9 Gastro-esophageal reflux disease without esophagitis; E87.1 Hypo-osmolality and hyponatremia
CPT/HCPCS: 99283

== ENCOUNTER 2019-07-05 22:37 | Inpatient (IN) | payer OTHER, MEDICARE ==
[~2019-07-05] VITALS: Ht 162.6 cm; Wt 70.8 kg
[~2019-07-05 22:37] MED LIST changes: +DILT180C32 PO; -DILT180C9 PO
[2019-07-05] MEDS ORDERED: ATROPINE SYRINGE 0.1 MG/ML, 10ML ONE (22:39)
--- NOTE | 2019-07-05 22:40 | NUR ---
BIB [facility] FOR CO PROGRESSIVE WEAKNESS X 24 HOURS. PRESENTS PWD; AWAKE/ALERT; A&OX2, LOCATION AND TIME, & WITH SLURRED SPEECH. BRADYCARDIC, HR 40'S & HYPOTENSIVE SBP 65 ON SCENE. +ORTHOSTATICS ON SCENE. GIVEN ATROPINE AND NS SHAREPOINT ADMINISTRATOR WITH IMPROVED HR AND BP. ARRIVES NSR 60 BP 71/39. HX OF HTN AND COPD. ADMITS DRINKING "TWO GOMEZ" THIS EVENING. SPEECH SLURRED, FACE SYMMETRICAL, +STRENGTH X 4. DENIES CP/SOB/PRODUCTIVE COUGH/FEVER/DIZZINESS/BLOOD IN EMESIS OR STOOL. BP/SPO2/ECG MONITORING IN PLACE. NSR ON MONITOR, RATE 55-60. HYPOTENSIVE, ONE LITER NS HUNG PER ERP VERBAL ORDER. <3S CAP REFILL. EKG COMPLETED UPON ARRIVAL. Addendum: 07/05/19 at 2300 by LWEGENER PT A&OX3, PERSON, LOCATION, & TIME
[2019-07-05] MEDS ORDERED: SODIUM CHLORIDE 0.9% 1,000ML IVBOLUS ONE (23:00)
[2019-07-05] MEDS ORDERED: AMLODIPINE (23:06)
[2019-07-05 23:11] LABS: BASOPHILS # (AUTO) 0.08 x10^3/uL (0-0.1); BASOPHILS % (AUTO) 2 % (0-1); EOSINOPHILS # (AUTO) 0.14 x10^3/uL (0-0.4); EOSINOPHILS % (AUTO) 3 % (1-7); LYMPHOCYTES # (AUTO) 1.16 x10^3/uL (1-3.4); LYMPHOCYTES % (AUTO) 24 % (22-44); MD NO; MEAN CORPUSCULAR HEMOGLOBIN 32.3 pg (27.0-34.8); MEAN CORPUSCULAR HGB CONC 34.2 g/dL (32.4-35.8); MEAN CORPUSCULAR VOLUME 94.5 fL (80-100); MEAN PLATELET VOLUME 8.1 fL (7.4-10.4); MONOCYTES # (AUTO) 0.43 x10^3/uL (0.2-0.8); MONOCYTES % (AUTO) 9 % (2-9); NEUTROPHILS # (AUTO) 3.13 x10^3/uL (1.8-6.8); NEUTROPHILS % (AUTO) 64 % (42-75); PLATELET COUNT 259 x10^3/uL (130-400); RED BLOOD COUNT 3.05 x10^6/uL (3.82-5.3)
--- NOTE | 2019-07-05 23:12 | NUR ---
PT EMOTIONAL, STATING "I'M 69 YEARS OLD. I CAN'T BE DRINKING LIKE THIS. EVERYTHING THAT IS GOING ON THE WORLD IS JUST SO SCARY RIGHT NOW". PT ABLE TO BE CALMED WITH VERBAL COACHING. IMPROVED BP W IVF. HR REMAINS SINUS, HR 56. PT DENIES DIZZINESS/WEAKNESS/NAUSEA. PWD.
[2019-07-05 23:19] LABS: ALANINE AMINOTRANSFERASE 40 U/L (12-78); ALBUMIN 3.1 g/dL (3.4-5.0); ANION GAP 12 mmol/L (5-15); CALCIUM 7.8 mg/dL (8.5-10.1); CHLORIDE 99 mmol/L (98-107); CREATININE 1.02 mg/dL (0.55-1.02)
[2019-07-05 23:24] LABS: ALKALINE PHOSPHATASE 87 U/L (45-117); BILIRUBIN,TOTAL 0.2 mg/dL (0.2-1.0); TOTAL PROTEIN 6.2 g/dL (6.4-8.2); TROPONIN I < 0.015 ng/mL (0.000-0.045)
[2019-07-05] MEDS ORDERED: MAGNESIUM SULFATE 1 GM, THIAMINE 100 MG, FOLIC ACID 1 MG, MVI ADULT 10 ML in SODIUM CHL... IV ONE (23:30)
--- NOTE | 2019-07-05 23:37 | NUR ---
BP BORDERLINE, ADDITIONAL IVF HUNG PER VERBAL ORDER. PT RESTING COMFORTABLY WITH EYES CLOSED, EVEN/REGULAR RESPIRATIONS NOTED. ERP AWARE OF LAB RESULTS, ADDITIONAL ORDERS RECEIVED. MEDICATIONS REQUESTED FROM PHARMACY. PT TO BE ADMITTED.
--- NOTE | 2019-07-05 23:48 | NUR ---
PT ARROUSES EASILY TO VOICE AND LIGHT PHYSICAL STIM. AWAKENS WITH "WHERE AM I? WHAT AM I DOING HERE?". PT EASILY RE-ORIENTED. REMAINS ORIENTED TO PERSON/TIME. IVF RUNNING.
[2019-07-06] MEDS ORDERED: SODIUM CHLORIDE 0.9%, 500ML IVBOLUS ONE
[2019-07-06 00:06] LABS: FREE T4 (FREE THYROXINE) 0.79 ng/dL (0.76-1.46)
--- NOTE | 2019-07-06 00:08 | NUR ---
REPORT TO LARRY WAKEFIELD ON TELE 2. PT PREPARED FOR TRANSPORT
[2019-07-06] MEDS ORDERED: ONDANSETRON ODT 4 MG PO PRN (01:00)
[2019-07-06] MEDS ORDERED: POLYETHYLENE GLYCOL 17 GM PACKET PO PRN (01:00)
[2019-07-06] MEDS ORDERED: MAGNESIUM SULFATE PMX 2GM/50ML 50 ML IV ONE (01:00)
[2019-07-06] MEDS ORDERED: BISACODYL 10 MG SUPP PR PRN (01:00)
[2019-07-06 01:01] VITALS: BP 142/74
[2019-07-06] MEDS: SODIUM CHLORIDE 0.9% 1,000 ML IV SCH ×2 (01:30→14:29)
[2019-07-06 05:31] LABS: BASOPHILS # (AUTO) 0.03 x10^3/uL (0-0.1); BASOPHILS % (AUTO) 1 % (0-1); EOSINOPHILS # (AUTO) 0.03 x10^3/uL (0-0.4); EOSINOPHILS % (AUTO) 1 % (1-7); LYMPHOCYTES # (AUTO) 1.26 x10^3/uL (1-3.4); LYMPHOCYTES % (AUTO) 28 % (22-44); MD NO; MEAN CORPUSCULAR HEMOGLOBIN 32.1 pg (27.0-34.8); MEAN CORPUSCULAR VOLUME 94.4 fL (80-100); MEAN PLATELET VOLUME 8.2 fL (7.4-10.4); MONOCYTES # (AUTO) 0.22 x10^3/uL (0.2-0.8); MONOCYTES % (AUTO) 5 % (2-9); NEUTROPHILS # (AUTO) 2.91 x10^3/uL (1.8-6.8); NEUTROPHILS % (AUTO) 66 % (42-75); PLATELET COUNT 273 x10^3/uL (130-400); RED BLOOD COUNT 3.34 x10^6/uL (3.82-5.3); RED CELL DISTRIBUTION WIDTH 15.8 % (9.6-15.2)
[2019-07-06 05:37] LABS: ANION GAP 11 mmol/L (5-15); CALCIUM 8.4 mg/dL (8.5-10.1); CHLORIDE 104 mmol/L (98-107)
[2019-07-06 05:44] LABS: CREATININE 0.65 mg/dL (0.55-1.02); TROPONIN I < 0.015 ng/mL (0.000-0.045)
[2019-07-06 07:56] VITALS: BP 125/72
[2019-07-06] MEDS: SENNA/DOCUSATE TABLET PO SCH (08:04)
[2019-07-06] MEDS: ACETAMINOPHEN 325 MG TABLET PO PRN ×2 (08:16→19:56)
[2019-07-06 09:11] VITALS: BP_SYST 132; BP_SYST 160; BP_SYST 172; BP_DIAS 82; BP_DIAS 86; BP_DIAS 98
[2019-07-06] MEDS ORDERED: OMEP20TA62 PO (09:26)
[2019-07-06] MEDS ORDERED: ALBU8.5H8 IH (11:10)
[2019-07-06] MEDS ORDERED: MONT10TA6 PO (11:11)
[2019-07-06 11:17] LABS: TROPONIN I < 0.015 ng/mL (0.000-0.045)
[2019-07-06] MEDS: POTASSIUM CHLORIDE 20 MEQ, MAGNESIUM SULFATE 1 GM, THIAMINE 200 MG, FOLIC ACID 1 MG, MV... IV SCH (14:28)
[2019-07-06 15:58] VITALS: BP_SYST 167; BP_SYST 176; BP_DIAS 84; BP_DIAS 86; BP_DIAS 89
[2019-07-06 18:46] VITALS: BP 181/92
[2019-07-06] MEDS ORDERED: ATORVASTATIN 10 MG TABLET PO SCH (21:00)
[2019-07-06] MEDS ORDERED: [UNRECOGNIZED DRUG - OTHER] NAS PRN (21:00)
[2019-07-06] MEDS ORDERED: DIPHENHYDRAMINE 25 MG CAPSULE ONE (23:21)
[2019-07-06] MEDS ORDERED: DIPHENHYDRAMINE 25 MG CAPSULE PO PRN (23:30)
[2019-07-07 01:31] VITALS: BP 175/90
[2019-07-07] MEDS: SODIUM CHLORIDE 0.9% 1,000 ML IV SCH (01:35)
[2019-07-07] MEDS: ACETAMINOPHEN 325 MG TABLET PO PRN ×2 (01:37→10:14)
[2019-07-07] MEDS ORDERED: SODIUM CHLORIDE NASAL SPRAY 45ML BOTTLE NAS PRN (05:00)
[2019-07-07 05:41] LABS: ANION GAP 10 mmol/L (5-15); CALCIUM 8.8 mg/dL (8.5-10.1); CHLORIDE 105 mmol/L (98-107); CREATININE 0.41 mg/dL (0.55-1.02)
[2019-07-07 06:09] VITALS: BP 188/95
[2019-07-07] MEDS: [UNRECOGNIZED DRUG - REMARK] PO SCH ×2 (08:20→09:00)
[2019-07-07] MEDS ORDERED: LISINOPRIL 20 MG TABLET PO SCH ×2 (08:30→21:00)
[2019-07-07] MEDS: SENNA/DOCUSATE TABLET PO SCH (09:00)
[2019-07-07 10:04] VITALS: BP 142/91
[2019-07-07 10:05] VITALS: BP 165/86
[2019-07-07 10:06] VITALS: BP 160/91
[2019-07-07 13:08] VITALS: BP 160/91
[2019-07-07] MEDS: POTASSIUM CHLORIDE 20 MEQ, MAGNESIUM SULFATE 1 GM, THIAMINE 200 MG, FOLIC ACID 1 MG, MV... IV SCH (14:00)
== END 2019-07-07 15:01 | disposition home or self-care (01) | DRG 74 ==
LOC: ED 22:45 → EDIP 07-06 → 4WST 07-06 00:22
PROVIDERS: ADMIT Internal Medicine; ATTEND Internal Medicine
DX: G90.8 Other disorders of autonomic nervous system (principal); E87.1 Hypo-osmolality and hyponatremia; I47.1 Supraventricular tachycardia; J44.9 Chronic obstructive pulmonary disease, unspecified; F41.1 Generalized anxiety disorder; K21.9 Gastro-esophageal reflux disease without esophagitis; D64.9 Anemia, unspecified; E83.42 Hypomagnesemia; K44.9 Diaphragmatic hernia without obstruction or gangrene; R00.1 Bradycardia, unspecified; I10 Essential (primary) hypertension; E78.5 Hyperlipidemia, unspecified; Z87.11 Personal history of peptic ulcer disease; Z88.5 Allergy status to narcotic agent; Z87.891 Personal history of nicotine dependence; Z88.8 Allergy status to other drugs, medicaments and biological substances
CPT/HCPCS: 36415; 71045; 80048; 80053; 80307; 83735; 84439; 84443; 84484; 85025; 93005; 93306; 99285; G0378; J3411; J3475; J3480; J7030; J7040; Q0163

== ENCOUNTER 2019-08-01 11:25 | Inpatient (IN) | payer OTHER, MEDICARE ==
[~2019-08-01] VITALS: Ht 162.6 cm; Wt 63.0 kg
[~2019-08-01 11:25] MED LIST changes: +ALBU8.5H8 IH; +AMLODIPINE; +OMEP20TA62 PO
--- NOTE | 2019-08-01 11:50 | NUR ---
BIB BY [facility] FOR NAUSEA/SOB/CP/GENERALIZED MALAISE X 3 DAYS. ON ARRIVAL EMS REPORTS HR 160-170'S AND VERY IRREGULAR (EMS ECG AT BEDSIDE). PIV PLACED AND GIVEN 150MG OF AMIODARONE AND ROUGHLY 200ML OF NS WITH IMMEDIATE IMPROVEMENT IN HR TO 60-70'S. ON ARRIVAL: A+OX4, HR 70, 86/53. REPORTS CHEST PAIN/SOB REMAIN AT 8/10 (SAME PRIOR TO EMS ARRIVAL) PLACED ON WATCHMAKER APPRENTICE ECG OBTAININED 1L NS INFUSING AT RAPID RATE/2ND PIV TO BE PLACED SHORTLY BY MEDIC +COUGH/MAILAISE- IN MASK, PLACED IN NEGATIVE PRESSURE ROOM
--- NOTE | 2019-08-01 11:55 | NUR ---
LAB AT BEDSIDE PROVIDER OBTAINED COVID SAMPLE CLARIFIED NEED FOR AMIODARONE DRIP (RYTHM REMAIN SINUS), NEED FOR BLOOD CULTURES AND SAFETY OF ASPIRIN FOR CHEST PAIN IN SETTING OF PROBABLE COVID. PROVIDER CONSIREING PLAN
[2019-08-01] MEDS ORDERED: ASPIRIN 81 MG TABLET CHEW ONE ×2 (12:00→13:22)
[2019-08-01] MEDS ORDERED: PLEASE ENTER ALLERGIES MC SCH (12:00)
[2019-08-01] MEDS ORDERED: ASPIRIN 81 MG TABLET CHEW PO ONE ×2 (12:00→13:00)
--- NOTE | 2019-08-01 12:06 | NUR ---
MEDICATED OPER EMAR WITH 162 OF [facility] (AFTER DISCUSSION WITH PROVIDER) CXR AT BEDSIDE LAB AT BEDSIDE-FULL SET OF LABS OBTAINED INCLUDING BLOOD CULTURES
[2019-08-01 12:19] LABS: BASOPHILS # (AUTO) 0.01 x10^3/uL (0-0.1); BASOPHILS % (AUTO) 0 % (0-1); EOSINOPHILS # (AUTO) 0.11 x10^3/uL (0-0.4); EOSINOPHILS % (AUTO) 1 % (1-7); LYMPHOCYTES # (AUTO) 1.43 x10^3/uL (1-3.4); LYMPHOCYTES % (AUTO) 17 % (22-44); MD NO; MEAN CORPUSCULAR HEMOGLOBIN 33.6 pg (27.0-34.8); MEAN CORPUSCULAR HGB CONC 33.4 g/dL (32.4-35.8); MEAN CORPUSCULAR VOLUME 100.5 fL (80-100); MEAN PLATELET VOLUME 8.7 fL (7.4-10.4); MONOCYTES % (AUTO) 5 % (2-9); NEUTROPHILS # (AUTO) 6.44 x10^3/uL (1.8-6.8); NEUTROPHILS % (AUTO) 77 % (42-75); PLATELET COUNT 179 x10^3/uL (130-400); RED BLOOD COUNT 3.17 x10^6/uL (3.82-5.3); RED CELL DISTRIBUTION WIDTH 16.9 % (9.6-15.2)
[2019-08-01 12:27] LABS: ALANINE AMINOTRANSFERASE 51 U/L (12-78); ALBUMIN 3.3 g/dL (3.4-5.0); ANION GAP 17 mmol/L (5-15); CALCIUM 8.3 mg/dL (8.5-10.1); CHLORIDE 104 mmol/L (98-107)
[2019-08-01 12:31] LABS: ALKALINE PHOSPHATASE 116 U/L (45-117); BILIRUBIN,TOTAL 1.3 mg/dL (0.2-1.0); TOTAL PROTEIN 6.5 g/dL (6.4-8.2)
[2019-08-01 12:33] LABS: TROPONIN I 0.185 ng/mL (0.000-0.045)
--- NOTE | 2019-08-01 12:35 | NUR ---
Received call from lab for critical Troponin of 0.185. Provider made aware No new orders at this time
--- NOTE | 2019-08-01 13:07 | NUR ---
Provider to bedside-poc reviewed, to admin an additional 162mg of asa/avoid heparin gtt & placed card tele admit order
[2019-08-01] MEDS ORDERED: morphine SULFATE 10 MG/ML, 1ML IVPush PRN (13:30)
[2019-08-01] MEDS ORDERED: NITROGLYCERIN 0.4 MG BOTTLE (25 TABS) SL PRN (13:30)
[2019-08-01] MEDS ORDERED: GABAPENTIN 300 MG CAPSULE PO PRN (13:30)
[2019-08-01] MEDS ORDERED: NITROGLYCERIN 0.4 MG/SPRAY SL PRN (13:30)
[2019-08-01] MEDS ORDERED: morphine SULFATE 10 MG/ML, 1ML IV PRN (13:30)
[2019-08-01] MEDS ORDERED: MAGNESIUM SULFATE PMX 2GM/50ML 50 ML IV ONE (14:00)
[2019-08-01] MEDS ORDERED: TEMPLATE NON-FORMULARY MED. (Albuterol Sulfate** (Albuterol Sulfate Hfa**) 2 PUFF(S)) INH PRN (14:00)
[2019-08-01] MEDS ORDERED: ALBUTEROL SULFATE 2.5 MG/3 ML NPPB PRN (14:00)
[2019-08-01] MEDS ORDERED: LORazepam 0.5MG TABLET PO PRN (14:00)
--- NOTE | 2019-08-01 14:28 | NUR ---
UP TO BEDSIDE COMMODE 2 PERSON ASSIST D/T BILATERAL LOWER EXTREMITY WEAKNESS VOIDED AND HAD FORMED BM
[2019-08-01 14:54] VITALS: BP 113/74
[2019-08-01] MEDS ORDERED: CHOL50002 PO (16:49)
[2019-08-01] MEDS ORDERED: AMLO-150 PO (16:49)
[2019-08-01] MEDS ORDERED: LORA-446 PO (16:49)
[2019-08-01 19:26] LABS: TROPONIN I 0.937 ng/mL (0.000-0.045)
[2019-08-01 20:03] VITALS: BP 152/94
[2019-08-01] MEDS: ATORVASTATIN 10 MG TABLET PO SCH (20:12)
[2019-08-01] MEDS: SODIUM CHLORIDE FLUSH 10ML SYR IVF SCH (20:12)
[2019-08-01 20:51] LABS: CLOSTRIDIUM DIFFICILE ANTIGEN NEGATIVE; CLOSTRIDIUM DIFFICILE TOXIN NEGATIVE (Negative)
[2019-08-01] MEDS ORDERED: LISINOPRIL 20 MG TABLET PO SCH (21:00)
[2019-08-01] MEDS: LORazepam 0.5MG TABLET PO PRN (23:31)
[2019-08-02 01:43] VITALS: BP 141/83
[2019-08-02] MEDS: ACETAMINOPHEN 325 MG TABLET PO PRN (03:40)
[2019-08-02 05:28] LABS: ANION GAP 9 mmol/L (5-15); CALCIUM 8.4 mg/dL (8.5-10.1); CHLORIDE 104 mmol/L (98-107)
[2019-08-02 05:58] LABS: CHOL/HDL RATIO 1.7; CHOLESTEROL, TOTAL 131 mg/dL (140-239); CREATININE 0.57 mg/dL (0.55-1.02); HDL CHOL % 59 % (28-40); HDL CHOLESTEROL (DIRECT) 77 mg/dL (40-60); LDL CHOLESTEROL,CALCULATED 36 mg/dL (54-169); LDL/HDL RATIO 0.5 (0.5-3.0); TRIGLYCERIDES 91 mg/dL (50-200); VLDL CHOLESTEROL 18 mg/dL (0-25)
[2019-08-02] MEDS: ASPIRIN 325 MG TABLET EC PO SCH (05:59)
[2019-08-02 07:40] VITALS: BP 161/62
[2019-08-02] MEDS: OMEPRAZOLE 20 MG CAPSULE.DR PO SCH (08:21)
[2019-08-02] MEDS: SODIUM CHLORIDE FLUSH 10ML SYR IVF SCH ×2 (08:21→19:54)
[2019-08-02] MEDS: MONTELUKAST 10 MG TABLET PO SCH (08:21)
[2019-08-02] MEDS ORDERED: METOPROLOL TARTRATE 25 MG TAB PO SCH ×3 (09:30→18:00)
[2019-08-02] MEDS: LISINOPRIL 10 MG TABLET PO SCH ×2 (09:45→19:37)
[2019-08-02] MEDS: POTASSIUM CHLORIDE 20 MEQ TAB.ER.PRT PO SCH ×2 (09:45→12:04)
[2019-08-02 12:29] LABS: TROPONIN I 0.294 ng/mL (0.000-0.045)
[2019-08-02] MEDS ORDERED: DILTIAZEM 5 MG/ML, 5ML IVPush ONE (12:30)
[2019-08-02 13:34] VITALS: BP 112/76
[2019-08-02] MEDS: LOPERAMIDE 2 MG CAPSULE PO PRN ×2 (15:41→23:24)
[2019-08-02 19:19] VITALS: BP 128/72
[2019-08-02] MEDS: METOPROLOL TARTRATE 25 MG TAB PO SCH (19:54)
[2019-08-02] MEDS: ATORVASTATIN 10 MG TABLET PO SCH (19:54)
[2019-08-02] MEDS: LORazepam 0.5MG TABLET PO PRN (23:24)
[2019-08-03] VITALS (8 sets, daily range): BP systolic 107–164; BP diastolic 67–90
[2019-08-03] MEDS: ASPIRIN 325 MG TABLET EC PO SCH (05:10)
[2019-08-03] MEDS: METOPROLOL TARTRATE 25 MG TAB PO SCH ×2 (05:11→18:11)
[2019-08-03 05:15] LABS: BASOPHILS # (AUTO) 0.04 x10^3/uL (0-0.1); BASOPHILS % (AUTO) 1 % (0-1); EOSINOPHILS # (AUTO) 0.31 x10^3/uL (0-0.4); EOSINOPHILS % (AUTO) 5 % (1-7); LYMPHOCYTES # (AUTO) 2.15 x10^3/uL (1-3.4); LYMPHOCYTES % (AUTO) 36 % (22-44); MD NO; MEAN CORPUSCULAR HEMOGLOBIN 34.1 pg (27.0-34.8); MEAN CORPUSCULAR HGB CONC 33.9 g/dL (32.4-35.8); MEAN CORPUSCULAR VOLUME 100.5 fL (80-100); MEAN PLATELET VOLUME 9.2 fL (7.4-10.4); MONOCYTES % (AUTO) 10 % (2-9); NEUTROPHILS % (AUTO) 48 % (42-75); PLATELET COUNT 163 x10^3/uL (130-400); RED BLOOD COUNT 2.76 x10^6/uL (3.82-5.3); RED CELL DISTRIBUTION WIDTH 17.3 % (9.6-15.2)
[2019-08-03 05:27] LABS: CHLORIDE 109 mmol/L (98-107)
[2019-08-03 05:35] LABS: ALANINE AMINOTRANSFERASE 32 U/L (12-78); ALKALINE PHOSPHATASE 99 U/L (45-117); ANION GAP 8 mmol/L (5-15); BILIRUBIN,TOTAL 0.7 mg/dL (0.2-1.0); CALCIUM 8.4 mg/dL (8.5-10.1); CREATININE 0.45 mg/dL (0.55-1.02)
[2019-08-03] MEDS: MONTELUKAST 10 MG TABLET PO SCH (08:10)
[2019-08-03] MEDS: OMEPRAZOLE 20 MG CAPSULE.DR PO SCH (08:10)
[2019-08-03] MEDS: SODIUM CHLORIDE FLUSH 10ML SYR IVF SCH ×2 (08:11→20:13)
[2019-08-03] MEDS: LISINOPRIL 10 MG TABLET PO SCH ×2 (08:13→20:12)
[2019-08-03] MEDS ORDERED: MAGNESIUM SULFATE 4 GM in SODIUM CHLORIDE 0.9% 100 ML IV ONE (09:00)
[2019-08-03] MEDS: POTASSIUM CHLORIDE 20 MEQ TAB.ER.PRT PO SCH ×2 (11:13→11:15)
[2019-08-03] MEDS ORDERED: MAGNESIUM SULFATE PMX 4GM/100M 100 ML IVPB ONE (11:30)
[2019-08-03 14:08] LABS: TROPONIN I 0.111 ng/mL (0.000-0.045)
[2019-08-03] MEDS: ATORVASTATIN 10 MG TABLET PO SCH (20:12)
[2019-08-03] MEDS: ACETAMINOPHEN 325 MG TABLET PO PRN (23:16)
[2019-08-03] MEDS: LORazepam 0.5MG TABLET PO PRN (23:17)
[2019-08-04 00:51] VITALS: BP_SYST 126; BP_SYST 99; BP_DIAS 66; BP_DIAS 80
[2019-08-04 05:55] LABS: ALBUMIN 2.8 g/dL (3.4-5.0); ANION GAP 6 mmol/L (5-15); CALCIUM 8.5 mg/dL (8.5-10.1); CHLORIDE 109 mmol/L (98-107)
[2019-08-04 05:59] LABS: ALANINE AMINOTRANSFERASE 31 U/L (12-78); ALKALINE PHOSPHATASE 94 U/L (45-117); BILIRUBIN,TOTAL 0.7 mg/dL (0.2-1.0); CREATININE 0.57 mg/dL (0.55-1.02); TOTAL PROTEIN 6.1 g/dL (6.4-8.2)
[2019-08-04 06:11] VITALS: BP 136/78
[2019-08-04] MEDS: ASPIRIN 325 MG TABLET EC PO SCH (06:17)
[2019-08-04] MEDS: METOPROLOL TARTRATE 25 MG TAB PO SCH (06:18)
[2019-08-04 07:38] VITALS: BP 123/75
[2019-08-04] MEDS: OMEPRAZOLE 20 MG CAPSULE.DR PO SCH (08:25)
[2019-08-04] MEDS: LISINOPRIL 10 MG TABLET PO SCH (08:25)
[2019-08-04] MEDS: MONTELUKAST 10 MG TABLET PO SCH (08:25)
[2019-08-04] MEDS: SODIUM CHLORIDE FLUSH 10ML SYR IVF SCH (08:25)
[2019-08-04] MEDS ORDERED: REGADENOSON 0.4 MG/5 ML SYRINGE ONE (09:01)
[2019-08-04] MEDS ORDERED: ERGO500017 PO (10:30)
[2019-08-04] MEDS ORDERED: LISI-167 PO (10:30)
[2019-08-04] MEDS ORDERED: FLUTICASONE NASAL SPRAY 16GM NAS SCH (10:45)
[2019-08-04] MEDS ORDERED: LORATADINE 10 MG TABLET PO SCH (11:00)
[2019-08-04 12:12] VITALS: BP 134/84
[2019-08-04] MEDS ORDERED: FLUT16SP24 NAS (13:06)
[2019-08-04] MEDS ORDERED: METO25TA35 PO (13:06)
== END 2019-08-04 15:12 | disposition home or self-care (01) | DRG 309 ==
LOC: ED 11:27 → OBSVTOIN 12:59 → EDIP 12:59 → INTOOBSV 12:59 → SUATTDRO 13:05 → 4NW 15:12 → 5SO 08-03 10:41
PROVIDERS: ADMIT Hospitalist; ATTEND Hospitalist
DX: I47.1 Supraventricular tachycardia (principal); E87.2 Acidosis; I24.8 Other forms of acute ischemic heart disease; D53.9 Nutritional anemia, unspecified; E83.42 Hypomagnesemia; E87.6 Hypokalemia; I10 Essential (primary) hypertension; J44.9 Chronic obstructive pulmonary disease, unspecified; F41.9 Anxiety disorder, unspecified; M19.90 Unspecified osteoarthritis, unspecified site; R55 Syncope and collapse; R73.9 Hyperglycemia, unspecified; R74.0 Nonspecific elevation of levels of transaminase and lactic acid dehydrogenase [LDH]; Z82.49 Family history of ischemic heart disease and other diseases of the circulatory system; Z87.11 Personal history of peptic ulcer disease; Z87.891 Personal history of nicotine dependence; Z03.818 Encounter for observation for suspected exposure to other biological agents ruled out
CPT/HCPCS: 36415; 71045; 78452; 80048; 80053; 80061; 82607; 83735; 83880; 84100; 84484; 85025; 87324; 93005; 93017; G0378; J2785; A9502; J3475; U0001

== ENCOUNTER 2019-08-28 07:31 | Emergency (ER) | payer OTHER, MEDICARE ==
[~2019-08-28] VITALS: Ht 162.6 cm; Wt 62.0 kg
[~2019-08-28 07:31] MED LIST changes: +CHOL50002 PO; +FLUT16SP24 NAS; +HYDR-3246 PO; -HYDR-36 PO; +LORA-446 PO; +METO25TA35 PO; -TIZA2TAB2 PO; +TIZA2TAB4 PO
--- NOTE | 2019-08-28 08:00 | NUR ---
PT PLACED ON HEART MONITOR, PULSE OX, BP CUFF. VSS AT THIS TIME. PT STATES ABD CRAMPING MINIMAL, RATED 2/10. PT DENIES CP,SOB OR N/V AT THIS TIME. PT IN ST 110 ON MONITOR. [facility] UNABLE TO ESTABLISH IV. ATTEMPT IV ACCESS AT THIS TIME.
[2019-08-28 08:58] LABS: BASOPHILS # (AUTO) 0.07 x10^3/uL (0-0.1); BASOPHILS % (AUTO) 1 % (0-1); EOSINOPHILS # (AUTO) 0.12 x10^3/uL (0-0.4); EOSINOPHILS % (AUTO) 1 % (1-7); LYMPHOCYTES # (AUTO) 1.55 x10^3/uL (1-3.4); LYMPHOCYTES % (AUTO) 16 % (22-44); MD NO; MEAN CORPUSCULAR HEMOGLOBIN 36.4 pg (27.0-34.8); MEAN CORPUSCULAR HGB CONC 33.8 g/dL (32.4-35.8); MEAN CORPUSCULAR VOLUME 107.6 fL (80-100); MEAN PLATELET VOLUME 8.6 fL (7.4-10.4); MONOCYTES # (AUTO) 0.69 x10^3/uL (0.2-0.8); MONOCYTES % (AUTO) 7 % (2-9); NEUTROPHILS # (AUTO) 7.49 x10^3/uL (1.8-6.8); NEUTROPHILS % (AUTO) 76 % (42-75); PLATELET COUNT 167 x10^3/uL (130-400); RED BLOOD COUNT 3.02 x10^6/uL (3.82-5.3); RED CELL DISTRIBUTION WIDTH 17.2 % (9.6-15.2)
--- NOTE | 2019-08-28 09:00 | NUR ---
PT RESTING QUIETLY, NAD, SLEEPING INTERMITTENTLY.
[2019-08-28 09:07] LABS: ALANINE AMINOTRANSFERASE 37 U/L (12-78); ALBUMIN 3.5 g/dL (3.4-5.0); ANION GAP 12 mmol/L (5-15); CALCIUM 8.8 mg/dL (8.5-10.1); CHLORIDE 107 mmol/L (98-107)
[2019-08-28 09:12] LABS: ALKALINE PHOSPHATASE 137 U/L (45-117); BILIRUBIN,TOTAL 1.3 mg/dL (0.2-1.0); TOTAL PROTEIN 7.2 g/dL (6.4-8.2); TROPONIN I 0.023 ng/mL (0.000-0.045)
[2019-08-28] MEDS ORDERED: ADENOSINE 6 MG/2 ML ONE (09:22)
[2019-08-28] MEDS ORDERED: METOPROLOL 1 MG/ML, 5ML ONE (09:37)
--- NOTE | 2019-08-28 09:46 | NUR ---
0930 PT HR INCREASE TO 193 SVT. EKG AT BS. CODE CART IN ROOM. PT PLACED ON 2LITER VIA NC, PADS PLACED. ADENOSINE GIVEN WITH HR DECREASE TO 110. PT HR GRADUALLY INCREASED UP TO 180S, SVT AGAIN. 0942 METOPROLOL 5MG IVP GIVEN WITH SLOW DECREASE IN HR TO 160. 0945 METOPROLOL 5MG IVP GIVEN PER ERP ORDER. HR NOW AT 147.
[2019-08-28] MEDS ORDERED: AMIODARONE 450 MG in DEXTROSE 5% 241 ML IV PRN (10:00)
[2019-08-28] MEDS ORDERED: AMIODARONE 150 MG in DEXTROSE 5% 100 ML IV ONE (10:00)
[2019-08-28] MEDS ORDERED: FILTER 0.22 MICRON IV SCH (10:00)
[2019-08-28] MEDS ORDERED: METOPROLOL 1 MG/ML, 5ML IVPush ONE (10:00)
[2019-08-28] MEDS ORDERED: METOPROLOL PO (10:05)
--- NOTE | 2019-08-28 10:06 | NUR ---
VS UPDATED IN COMPUTER. MED REC COMPLETED. PT C/O L SIDED CHEST PRESSURE, RATED 8/10, SOB WITH TALKING. ERP NOTIFIED. CALL LIGHT WITHIN REACH.
--- NOTE | 2019-08-28 10:25 | NUR ---
AMIODARONE BOLUS INFUSING.
[2019-08-28] MEDS ORDERED: MAGNESIUM SULFATE PMX 2GM/50ML 50 ML IV ONE (10:30)
--- NOTE | 2019-08-28 10:31 | NUR ---
AMIODARONE BOLUS STOPPED PER DR QUAN. 75 MG INFUSED. PT RATE NSR 70S WITH OCCAS PVC NOTED. CALL LIGHT WITHIN REACH.
[2019-08-28] MEDS ORDERED: METOPROLOL TARTRATE 25 MG TAB ONE (10:43)
[2019-08-28] MEDS ORDERED: MAGNESIUM SULFATE PMX 2GM/50ML 50 ML ONE (10:43)
[2019-08-28] MEDS ORDERED: METOPROLOL TARTRATE 25 MG TAB PO ONE (11:00)
--- NOTE | 2019-08-28 12:01 | NUR ---
SPOKE WITH ABOUT POC. WILL RECHECK IN ONE HOUR.
[2019-08-28 12:32] VITALS: BP 169/86
--- NOTE | 2019-08-28 12:56 | NUR ---
VSS, PT REQUESTING TO GO HOME. CALLED, WILL CONTAINER COORDINATOR.
== END 2019-08-28 13:34 | disposition home or self-care (01) ==
LOC: ED 09:17
DX: R00.2 Palpitations (principal); I47.1 Supraventricular tachycardia; R07.89 Other chest pain; R42 Dizziness and giddiness; J44.9 Chronic obstructive pulmonary disease, unspecified; I10 Essential (primary) hypertension; Z87.891 Personal history of nicotine dependence; Z79.899 Other long term (current) drug therapy
CPT/HCPCS: 36415; 71045; 80053; 83735; 84443; 84484; 85025; 93005; 96365; 96366; 96375; 99291; J0282; J3475; 92960

== ENCOUNTER 2020-01-28 15:09 | Inpatient (IN) | payer OTHER, MEDICARE ==
[~2020-01-28] VITALS: Ht 162.6 cm; Wt 62.1 kg
[~2020-01-28 15:09] MED LIST changes: +METOPROLOL PO
--- NOTE | 2020-01-28 15:09 | NUR ---
INITIAL PT CONTACT. PT PRESENTS TO ED VIA AMBULANCE FROM PCP, SHIKHA BALES AFTER BEING SEEN IN THE OFFICE AND FOUND TO HAVE HYPOTENSION FOLLOWING A GLF IN THE OFFICE. PT STATES SHE "WEAK" AD HAS FOR A FEW DAYS. PT UPRIGHT ON GURNEY, CONTINUOUS SPECIAL EDUCATION PROFESSIONAL AND PULSE OX. WARM BLANKETS PROVIDED. CALL LIGHT WITHIN REACH, FALL PRECAUTIONS IN REACH. WILL CONTINUE TO MONITOR.
[2020-01-28] MEDS ORDERED: SODIUM CHLORIDE 0.9% 1,000 ML IV ONE (15:30)
[2020-01-28] MEDS ORDERED: SODIUM CHLORIDE FLUSH 10ML SYR IVF ONE (15:30)
--- NOTE | 2020-01-28 16:02 | NUR ---
PT UPRIGHT ON GURNEY. STAFF AT BEDSIDE ATTEMPTING US GUIDED IV PLACEMENT. PT DENIE ANY NEEDS AT THIS TIME. NAD, VSS. CALL LIGHT WITHIN REACH, FALL PRECAUTIONS IN PLACE. WILL CONTINUE TO MONITOR.
--- NOTE | 2020-01-28 16:09 | NUR ---
TASK RN: LEFT ARM PIV PLACED WITH ULTRASOUND FROM WHICH LABS WERE DRAWN ULTRASOUND AT BEDSIDE
--- NOTE | 2020-01-28 16:15 | NUR ---
US AT BEDSIDE
[2020-01-28 16:24] LABS: BASOPHILS % (AUTO) 2 % (0-1); EOSINOPHILS % (AUTO) 2 % (1-7); LYMPHOCYTES % (AUTO) 12 % (22-44); MEAN CORPUSCULAR HGB CONC 33.2 g/dL (32.4-35.8); MEAN PLATELET VOLUME 9.1 fL (7.4-10.4); MONOCYTES % (AUTO) 8 % (2-9); NEUTROPHILS % (AUTO) 77 % (42-75); PLATELET COUNT 227 x10^3/uL (130-400); RED BLOOD COUNT 3.36 x10^6/uL (3.82-5.3); RED CELL DISTRIBUTION WIDTH 13.9 % (9.6-15.2)
[2020-01-28 16:26] LABS: MD NO
[2020-01-28 16:30] LABS: ALANINE AMINOTRANSFERASE 202 U/L (12-78); ANION GAP 13 mmol/L (5-15); CALCIUM 9.6 mg/dL (8.5-10.1); CHLORIDE 97 mmol/L (98-107); CREATININE 0.83 mg/dL (0.55-1.02)
[2020-01-28 16:35] LABS: ALKALINE PHOSPHATASE 115 U/L (45-117); BILIRUBIN,TOTAL 0.8 mg/dL (0.2-1.0); TOTAL PROTEIN 7.5 g/dL (6.4-8.2)
--- NOTE | 2020-01-28 17:05 | NUR ---
PT UPRIGHT ON GURNEY. REQUESTING WARM BLANKETS, BEAR PAW WARMER PLACED. NAD, VSS. CALL LIGHT WITHIN REACH, FALL PRECAUTIONS IN PLACE. WILL CONTINUE TO MONITOR.
[2020-01-28] MEDS ORDERED: ESOM20CA PO (17:47)
[2020-01-28] MEDS ORDERED: ALBU2.5V11 NEB (17:47)
[2020-01-28] MEDS ORDERED: AMLO-150 PO (17:48)
[2020-01-28] MEDS ORDERED: LISI-170 PO (17:48)
[2020-01-28] MEDS ORDERED: DILT120C2 PO (17:48)
--- NOTE | 2020-01-28 18:00 | NUR ---
PT UPRIGHT ON GURNEY. BEAR PAW WARMER PLACED AND SOCKS PROVIDED. NAD, VSS. PRE WICK PLACED PER PT REQUEST, "IM INCONTINENT". CALL LIGHT WITHIN REACH, FALL PRECAUTIONS IN PLACE. WILL CONTINUE TO MONITOR.
[2020-01-28 18:16] LABS: MICROSCOPIC INDICATED
[2020-01-28] MEDS ORDERED: HEPARIN 5,000 UNITS/ML, 1ML ONE (18:27)
[2020-01-28] MEDS: HEPARIN 5,000 UNITS/ML, 1ML SQ SCH (18:29)
[2020-01-28] MEDS ORDERED: SODIUM CHLORIDE 0.9% 1,000 ML IV SCH (18:30)
[2020-01-28] MEDS ORDERED: ACETAMINOPHEN 325 MG TABLET PO PRN (18:30)
[2020-01-28] MEDS ORDERED: POLYETHYLENE GLYCOL 17 GM PACKET PO PRN (18:30)
[2020-01-28] MEDS ORDERED: ERGOCALCIFEROL 50,000 UNIT CAPSULE PO SCH (18:30)
[2020-01-28] MEDS ORDERED: BISACODYL 10 MG SUPP PR PRN (18:30)
[2020-01-28] MEDS ORDERED: ONDANSETRON ODT 4 MG PO PRN (18:30)
--- NOTE | 2020-01-28 18:31 | NUR ---
DINNER TRAY GIVEN TO PT.
--- NOTE | 2020-01-28 18:55 | NUR ---
BEDSIDE REPORT TO PILAR JUAREZ
--- NOTE | 2020-01-28 19:09 | NUR ---
REPORT RECEIVED FROM KATHIA JUAREZ
--- NOTE | 2020-01-28 20:00 | NUR ---
REPORT GIVEN TO LILAIN JUAREZ
--- NOTE | 2020-01-28 20:15 | NUR ---
PT PROVIDED ICE PACK FOR HEELS.
[2020-01-28] MEDS ORDERED: ATORVASTATIN 10 MG TABLET PO SCH (21:00)
[2020-01-28] MEDS: LISINOPRIL 10 MG TABLET PO SCH (22:21)
[2020-01-28] MEDS: SODIUM CHLORIDE 0.9% 1,000 ML IV SCH (22:22)
[2020-01-28 22:28] VITALS: BP 107/66
[2020-01-28] MEDS: LORazepam 1MG TABLET PO PRN (22:41)
[2020-01-29] MEDS ORDERED: MAGNESIUM SULFATE PMX 4GM/100M 100 ML IVPB ONE
[2020-01-29] MEDS: CEFTRIAXONE PMX 1GM/50ML 50 ML IV SCH (00:40)
[2020-01-29 00:46] VITALS: BP 117/75
[2020-01-29] MEDS: HEPARIN 5,000 UNITS/ML, 1ML SQ SCH ×3 (02:43→18:05)
[2020-01-29 05:05] LABS: ALANINE AMINOTRANSFERASE 130 U/L (12-78); ALBUMIN 3.1 g/dL (3.4-5.0); ANION GAP 11 mmol/L (5-15); CALCIUM 8.7 mg/dL (8.5-10.1); CHLORIDE 102 mmol/L (98-107); CREATININE 0.71 mg/dL (0.55-1.02)
[2020-01-29 05:08] LABS: ALKALINE PHOSPHATASE 99 U/L (45-117); BILIRUBIN,TOTAL 0.6 mg/dL (0.2-1.0); TOTAL PROTEIN 6.4 g/dL (6.4-8.2)
[2020-01-29 05:18] LABS: BASOPHILS % (AUTO) 3 % (0-1); EOSINOPHILS % (AUTO) 6 % (1-7); LYMPHOCYTES % (AUTO) 25 % (22-44); MEAN CORPUSCULAR HEMOGLOBIN 35.3 pg (27.0-34.8); MEAN CORPUSCULAR HGB CONC 33.3 g/dL (32.4-35.8); MEAN PLATELET VOLUME 9.3 fL (7.4-10.4); MONOCYTES % (AUTO) 14 % (2-9); NEUTROPHILS % (AUTO) 53 % (42-75); PLATELET COUNT 198 x10^3/uL (130-400); RED BLOOD COUNT 2.86 x10^6/uL (3.82-5.3); RED CELL DISTRIBUTION WIDTH 13.7 % (9.6-15.2)
[2020-01-29 05:24] LABS: MD NO
[2020-01-29 06:34] VITALS: BP 106/65
[2020-01-29] MEDS: MONTELUKAST 10 MG TABLET PO SCH (08:11)
[2020-01-29] MEDS: SENNA/DOCUSATE TABLET PO SCH (08:11)
[2020-01-29] MEDS: PANTOPRAZOLE 40MG TABLET PO SCH (08:11)
[2020-01-29] MEDS: DILTIAZEM 120 MG CAP.ER.24H PO SCH (08:12)
[2020-01-29] MEDS: LISINOPRIL 10 MG TABLET PO SCH ×2 (08:12→20:39)
[2020-01-29] MEDS: SODIUM CHLORIDE 0.9% 1,000 ML IV SCH ×2 (08:13→20:40)
[2020-01-29] MEDS ORDERED: AMLODIPINE 5 MG TABLET PO SCH (09:00)
[2020-01-29 13:12] VITALS: BP 98/52
[2020-01-29 18:40] VITALS: BP 101/64
[2020-01-29] MEDS: LORazepam 1MG TABLET PO PRN (20:40)
[2020-01-30] MEDS: CEFTRIAXONE PMX 1GM/50ML 50 ML IV SCH (00:27)
[2020-01-30 00:37] VITALS: BP 124/76
[2020-01-30] MEDS: HEPARIN 5,000 UNITS/ML, 1ML SQ SCH ×2 (02:30→11:10)
[2020-01-30 05:20] LABS: CHLORIDE 108 mmol/L (98-107)
[2020-01-30 05:25] LABS: ANION GAP 7 mmol/L (5-15); CALCIUM 8.5 mg/dL (8.5-10.1)
[2020-01-30 06:33] VITALS: BP 127/84
[2020-01-30] MEDS: PANTOPRAZOLE 40MG TABLET PO SCH (08:04)
[2020-01-30] MEDS: MONTELUKAST 10 MG TABLET PO SCH (08:53)
[2020-01-30] MEDS: LISINOPRIL 10 MG TABLET PO SCH (08:53)
[2020-01-30] MEDS: SENNA/DOCUSATE TABLET PO SCH ×2 (08:53→08:58)
[2020-01-30] MEDS: DILTIAZEM 120 MG CAP.ER.24H PO SCH (08:55)
[2020-01-30] MEDS: SODIUM CHLORIDE 0.9% 1,000 ML IV SCH (11:04)
[2020-01-30 12:16] VITALS: BP 111/77
[2020-01-30] MEDS ORDERED: CEPH-368 PO (12:22)
== END 2020-01-30 16:16 | disposition home health service (06) | DRG 690 ==
LOC: ED 17:01 → EDIP 17:39 → 3N 20:44
PROVIDERS: ADMIT Internal Medicine; ATTEND Hospitalist
PROC: 0T9B70Z Drainage of Bladder with Drainage Device, Via Natural or Artificial Opening (ICD-10-PCS; principal; 2020-01-28)
DX: N39.0 Urinary tract infection, site not specified (principal); E87.1 Hypo-osmolality and hyponatremia; E86.0 Dehydration; D75.89 Other specified diseases of blood and blood-forming organs; E78.5 Hyperlipidemia, unspecified; F41.9 Anxiety disorder, unspecified; I10 Essential (primary) hypertension; B96.20 Unspecified Escherichia coli [E. coli] as the cause of diseases classified elsewhere; J44.9 Chronic obstructive pulmonary disease, unspecified; K21.9 Gastro-esophageal reflux disease without esophagitis; Z87.891 Personal history of nicotine dependence
CPT/HCPCS: 36415; 76700; 80048; 80053; 80307; 81001; 82607; 83690; 83735; 84443; 85025; 87077; 87086; 87186; 93005; 96360; 99285; G0378; J0696; J1644; Q0162; J3475; J7030

== ENCOUNTER 2020-11-22 11:05 | Emergency (ER) | payer OTHER ==
[~2020-11-22] VITALS: Ht 162.6 cm; Wt 55.0 kg
[~2020-11-22 11:05] MED LIST changes: +ALBU2.5V11 NEB; +CEPH-368 PO; +CITA20TA6 PO; +DILT-86 PO; +DILT120C2 PO; -DILT180C32 PO; +ESOM20CA PO; -HYDR-3246 PO; +HYDR-3248 PO; +TIZA-106 PO; -TIZA2TAB4 PO
--- NOTE | 2020-11-22 11:55 | NUR ---
PT TRANSPORTED TO [facility].
[2020-11-22 11:57] LABS: BASOPHILS % (AUTO) 1 % (0-1); EOSINOPHILS % (AUTO) 7 % (1-7); LYMPHOCYTES % (AUTO) 11 % (22-44); MEAN CORPUSCULAR HEMOGLOBIN 34.9 pg (27.0-34.8); MEAN CORPUSCULAR HGB CONC 34.6 g/dL (32.4-35.8); MONOCYTES % (AUTO) 11 % (2-9); NEUTROPHILS % (AUTO) 71 % (42-75); PLATELET COUNT 279 x10^3/uL (130-400); RED BLOOD COUNT 3.48 x10^6/uL (3.82-5.3); RED CELL DISTRIBUTION WIDTH 15.6 % (9.6-15.2)
[2020-11-22] MEDS ORDERED: SODIUM CHLORIDE 0.9% 1,000ML IVBOLUS ONE (12:00)
[2020-11-22 12:12] LABS: ALBUMIN 3.1 g/dL (3.4-5.0); ANION GAP 10 mmol/L (5-15); CALCIUM 9.1 mg/dL (8.5-10.1); CHLORIDE 96 mmol/L (98-107)
[2020-11-22 12:16] LABS: ALANINE AMINOTRANSFERASE 37 U/L (12-78); ALKALINE PHOSPHATASE 158 U/L (45-117); CREATININE 0.74 mg/dL (0.55-1.02); TOTAL PROTEIN 6.8 g/dL (6.4-8.2)
--- NOTE | 2020-11-22 12:22 | NUR ---
PENELOPE RODAS COLLECTED.
[2020-11-22 12:33] LABS: MICROSCOPIC INDICATED
--- NOTE | 2020-11-22 12:46 | NUR ---
PT HAS NOT HAD BM, UNABLE TO COLLECT STOOL SAMPLE AT THIS TIME.
--- NOTE | 2020-11-22 12:58 | NUR ---
CALL FROM PT'S FOR UPDATE.
[2020-11-22] MEDS ORDERED: CEFTRIAXONE 1,000 MG in DEXTROSE 5% 50 ML IVPB ONE (13:00)
--- NOTE | 2020-11-22 13:09 | NUR ---
MAGALI RUIZ PT'S , .
--- NOTE | 2020-11-22 13:20 | NUR ---
LAB AT BEDSIDE FOR BLOOD CULTURES.
--- NOTE | 2020-11-22 14:03 | NUR ---
LEFT VM MESSAGE FOR TO TRAINING REPRESENTATIVE PT UPON DISCHARGE.
[2020-11-22 14:06] VITALS: BP 108/69
--- NOTE | 2020-11-22 14:28 | NUR ---
CALL FROM PT'S STATING HE IS NOT ABLE TO PICK HER UP DUE TO HIS OWN DISSABILITY, BUT HE IS ABLE TO CARE FOR HER ONCE SHE GETS HOME.
--- NOTE | 2020-11-22 15:59 | NUR ---
AWAITING [facility] FOR TRANSPORT.
== END 2020-11-22 17:18 | disposition home or self-care (01) ==
LOC: ED 11:27
DX: N30.00 Acute cystitis without hematuria (principal); E87.1 Hypo-osmolality and hyponatremia; R19.7 Diarrhea, unspecified; I10 Essential (primary) hypertension; K21.9 Gastro-esophageal reflux disease without esophagitis; J44.9 Chronic obstructive pulmonary disease, unspecified
CPT/HCPCS: 36415; 74022; 80053; 81001; 83605; 83690; 84145; 85025; 87040; 87077; 87086; 87186; 96361; 96365; 99284; J0696; J7030

== ENCOUNTER 2020-11-22 18:29 | Emergency (ER) | payer OTHER ==
[~2020-11-22] VITALS: Ht 162.6 cm; Wt 55.0 kg
--- NOTE | 2020-11-22 18:52 | NUR ---
REPORT RECIEVED FROM ZAKI JUAREZ
--- NOTE | 2020-11-22 18:55 | NUR ---
REPORT TO LARRY COURTNEY.
[2020-11-22] MEDS ORDERED: LOPERAMIDE 2 MG CAPSULE ONE (19:52)
[2020-11-22] MEDS ORDERED: LOPERAMIDE 2 MG CAPSULE PO ONE (20:00)
--- NOTE | 2020-11-22 20:45 | NUR ---
PT [facility]CHARG[facility] HOME [facility]
== END 2020-11-22 20:46 | disposition home or self-care (01) ==
LOC: ED 19:00
DX: R19.7 Diarrhea, unspecified (principal); R10.9 Unspecified abdominal pain; I10 Essential (primary) hypertension; J44.9 Chronic obstructive pulmonary disease, unspecified; K21.9 Gastro-esophageal reflux disease without esophagitis; Z87.891 Personal history of nicotine dependence
CPT/HCPCS: 99283

== ENCOUNTER 2020-12-29 16:55 | Emergency (ER) | payer OTHER ==
[~2020-12-29] VITALS: Ht 162.6 cm; Wt 58.0 kg
[2020-12-29 18:00] VITALS: BP 97/62
[2020-12-29 18:00] LABS: BASOPHILS % (AUTO) 1 % (0-1); EOSINOPHILS % (AUTO) 1 % (1-7); LYMPHOCYTES % (AUTO) 7 % (22-44); MEAN CORPUSCULAR HEMOGLOBIN 36.4 pg (27.0-34.8); MEAN CORPUSCULAR HGB CONC 34.2 g/dL (32.4-35.8); MEAN PLATELET VOLUME 7.9 fL (7.4-10.4); MONOCYTES % (AUTO) 10 % (2-9); NEUTROPHILS % (AUTO) 81 % (42-75); PLATELET COUNT 270 x10^3/uL (130-400); RED BLOOD COUNT 2.73 x10^6/uL (3.82-5.3); RED CELL DISTRIBUTION WIDTH 14.4 % (9.6-15.2)
[2020-12-29] MEDS: SODIUM CHLORIDE 0.9%, 500ML IVBOLUS ONE (18:05)
[2020-12-29] MEDS ORDERED: ENALAPRILAT 1.25 MG/ML, 1ML ONE (18:12)
[2020-12-29] MEDS ORDERED: ONDANSETRON 2MG/ML, 2ML ONE (18:12)
[2020-12-29] MEDS ORDERED: CARVEDILOL 3.125 MG TABLET ONE (18:12)
[2020-12-29 18:13] LABS: ALBUMIN 2.5 g/dL (3.4-5.0); ANION GAP 10 mmol/L (5-15); CALCIUM 8.9 mg/dL (8.5-10.1); CHLORIDE 96 mmol/L (98-107); CREATININE 0.63 mg/dL (0.55-1.02)
== END 2020-12-29 21:55 | disposition home or self-care (01) ==
LOC: ED 18:56
DX: R19.7 Diarrhea, unspecified (principal); I10 Essential (primary) hypertension; K21.9 Gastro-esophageal reflux disease without esophagitis; J44.9 Chronic obstructive pulmonary disease, unspecified; Z87.891 Personal history of nicotine dependence
CPT/HCPCS: 36415; 80048; 82040; 85025; 96360; 99283; J7040